=== PATIENT | female | born 1955 | race African-American/Black ===

== ENCOUNTER 2020-11-23 22:29 | IRF | payer OTHER, SELFPAY ==
--- NOTE | 2020-11-23 22:26 | ADMGEN ---
This patient, Leonor Knight, was admitted to [facility] Room 220-02. Patient/family oriented to hospital policies and general routines including ID bracelet, bed and alarms, visiting hours, pain management, procedures, bathroom and other care routines, personal items, smoking policy, room service/diet, and visiting hours. Information on how to activate the Rapid Response Team has been discussed. Patient/Family are encouraged to report perceived risks to care and to ask questions if they do not understand what they are told or what they should do.
--- NOTE | 2020-11-23 22:35 | ADMGEN ---
This patient, Leonor Knight, [facility] at 22:20 . Patient/family oriented to hospital policies and general routines including ID bracelet, bed and alarms, visiting hours, pain management, procedures, bathroom and other care routines, personal items, smoking policy, room service/diet, and visiting hours. Information on how to activate the Rapid Response Team has been discussed. Patient/Family are encouraged to report perceived risks to care and to ask questions if they do not understand what they are told or what they should do.
[2020-11-23 22:46] VITALS: BMI 24.1
[2020-11-23 23:03] VITALS: BP 120/74; PULSE 72; RESP 16; TEMP 35.9; O2SAT 99
[2020-11-24] MEDS: oxyCODONE/ACETAMINOPHEN (*CRX) 5-325 MG TABLET 1 TABLET PO ×2 (01:25→09:16)
[2020-11-24] MEDS: CYCLOBENZAPRINE HCL 10 MG TABLET PO ×2 (01:27→05:48)
[2020-11-24] MEDS: ACETAMINOPHEN 325 MG TABLET PO (03:26)
[2020-11-24 05:10] VITALS: BP 147/78; PULSE 71; RESP 16; TEMP 36.1; O2SAT 100
[2020-11-24 05:14] LABS: Basophils Percent Auto 0.4 % (0.2-1.2); Eosinophils Absolute Auto 0.2 K/mm3 (0-0.3); Eosinophils Percent Auto 3.4 % (0-4.4); Hematocrit 44.1 % (37.0-47.0); Hemoglobin 14.8 g/dL (12.0-15.0); Immature Granulocyte Absolute 0.01 K/mm3 (0.00-0.031); Immature Granulocyte Percent A 0.2 % (0-0.5); Immature Platelet Fraction Pct 3.9 % (0.9-11.2); Lymphocytes Absolute Auto 1.47 K/mm3 (0.9-3.2); Lymphocytes Percent Auto 31.1 % (18.3-44.2); Mean Corpuscular HGB Conc 33.6 g/dl (32-36); Mean Corpuscular Hemoglobin 31.8 pg (26-34); Mean Corpuscular Volume 94.8 fl (80-100); Mean Platelet Volume 9.6 fl (7.4-10.4); Monocytes Absolute Auto 0.6 K/mm3 (0.1-0.6); Monocytes Percent Auto 11.6 % (2.6-8.5); Neutrophils Absolute Auto 2.5 K/mm3 (1.3-6.7); Neutrophils Percent Auto 53.3 % (45.5-73.1); Platelet Count Result 141 k/mm3 (150-375); Red Blood Count 4.65 M/mm3 (4.2-5.4); Red Cell Distribution Width 12.3 % (11.5-14.5); White Blood Count 4.7 K/mm3 (4.5-10.0)
[2020-11-24 05:33] LABS: Anion Gap 2 mmol/L (8-16); Blood Urea Nitrogen 21 mg/dL (7-17); Calcium 9.2 mg/dL (8.4-10.2); Carbon Dioxide 32 mmol/L (22-30); Chloride 104 mmol/L (98-107); Cholesterol 134 mg/dL (0-200); Estimated CRCL calculation 41 ml/min; Estimated Glomerular Filt Rate > 60; Glucose 87 mg/dL (65-105); HDL Direct 60 mg/dL; Potassium 4.1 mmol/L (3.4-5.0); Sodium 138 mmol/L (137-145); Triglycerides 62 mg/dL (<150)
[2020-11-24 05:43] LABS: LDL Cholesterol Direct 55 mg/dL
[2020-11-24] MEDS: POTASSIUM CHLORIDE 10 MEQ TABLET.ER PO (09:15)
[2020-11-24] MEDS: CLOPIDOGREL BISULFATE 75 MG TABLET PO (09:15)
[2020-11-24] MEDS: LOSARTAN POTASSIUM 25 MG TABLET PO (09:15)
[2020-11-24] MEDS: hydroCHLOROthiazide 25 MG TABLET PO (09:15)
[2020-11-24] MEDS: HEPARIN SODIUM 5,000 UNITS/ML VIAL 5000 UNITS SUB-Q ×2 (09:15→20:17)
[2020-11-24] MEDS: MULTIVITAMINS THERAPEUTIC TAB (*BKC) 1 TABLET PO (09:15)
[2020-11-24] MEDS: NIFEdipine 30 MG TAB.ER.24 90 MG PO (09:16)
--- NOTE | 2020-11-24 09:32 | WPDREHABHP ---
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 She presented to [facility] on 11/15/2020 with sudden onset of right-sided weakness. Head CT showed no acute process with chronic small vessel changes. Chest x-ray showed no acute process. The patient was found to have hypertensive urgency with systolics into the 230s that was treated with IV hydralazine, hydrochlorothiazide, and nifedipine. The patient reports that she had not been taking her blood pressure medicine. Neurology was consulted, Dr. Lionel Pacheco, who discovered small areas of infarct in the left thalamus and left caudate head of undetermined age. During the neurologist exam it is suspected that the thalamic lacunar infarct was acute due to microvascular etiology due to hypertension and smoking. 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 Weakness of knee flexion and ankle dorsiflexion , as well as a mute Babinski. An IHSS was 1 for right lower leg drift. The patient did not receive tPA due to being outside the window. On 11/16/2020 MRI confirmed a small left thalamic capsular stroke. Carotid Doppler showed no significant stenosis. Cardiac echo showed no stent, ejection fraction of 60% and grade 1 diastolic dysfunction. MRA showed no acute findings. The patient passed a bedside swallow evaluation and is on regular consistency diet with thin liquids. On 11/19/2020 the patient reported that she attempted to go to the bathroom on her own she did not use her call light for assistance. She had a traumatic fall and complained of right foot pain. X-ray showed a displaced oblique fracture of the right 5th metatarsal shaft. Orthopedics was consulted, Dr. Isabella Yoo, who treated it conservatively with compression dressing, ice, and elevation. Patient is weight-bearing as tolerated with a walking boot. Boot is to be worn when up and she may remove when sleeping. Dr. Isabella Yoo will require follow-up in her office after patient is discharged. DVT prophylaxis was rated as low until a right foot fracture, the patient was then started on subcu heparin. Blood pressure management is utilizing her home dose of hydrochlorothiazide and nifedipine. Lorsartan is a new medication. Patient will be discharged from acute hospital to [facility] on subcu heparin for DVT prophylaxis. Plavix and statin for treatment of CVA. Patient has an unknown aspirin allergy from her childhood. COVID: The patient has not traveled outside the [place] or had contact with someone who is ill that has traveled outside the [place] in the past 21 days. The patient is not travel to an area of the [place] that is experiencing no transmission of the Coronavirus and has not had close personal contact with anyone that has. Patient does not have a fever. The patient is not experiencing lower respiratory illness symptoms. The patient tested negative for COVID on 11/23/2020 HISTORY OF PRESENT ILLNESS: The patient's primary rehab impairment category is 01 stroke The etiologic diagnosis is posterior limb left internal capsule ischemic stroke I saw this patient [id number] on 11/24/2020 Therapy was initiated at the acute care facility and the patient transferred to us from [facility] on 11/23/2020 FALLS OR SURGERIES: The patient has had no major surgeries in the 100 days prior to admission. They had 1 fall in the past year. They had a falls with right 5th metatarsal injury in the past year. PAST MEDICAL HISTORY: hypertension, Raynaud's phenomenon PAST SURGICAL HISTORY: n/a SOCIAL HISTORY: the patient lives with her in
[2020-11-24 12:43] VITALS: BMI 24.1
--- NOTE | 2020-11-24 13:22 | PCNSR ---
On 11/24/20, the student, Jenny Herrera, provided care and completed [facility] documentation on this patient. I have reviewed the student's documentation and agree with the findings.
[2020-11-24 14:00] VITALS: BP 128/75; PULSE 82; RESP 14; TEMP 36.1; O2SAT 99
[2020-11-24] MEDS: ATORVASTATIN 40 MG TABLET PO (20:17)
[2020-11-24 22:00] VITALS: BP 140/88; PULSE 86; RESP 16; TEMP 36.4; O2SAT 99
[2020-11-25 05:15] VITALS: BP 149/95; PULSE 82; RESP 16; TEMP 36; O2SAT 100
[2020-11-25 06:44] VITALS: BP 129/83
[2020-11-25] MEDS: ACETAMINOPHEN 325 MG TABLET PO (08:53)
[2020-11-25] MEDS: CYCLOBENZAPRINE HCL 10 MG TABLET PO ×2 (08:53→18:41)
[2020-11-25] MEDS: CLOPIDOGREL BISULFATE 75 MG TABLET PO (08:55)
[2020-11-25] MEDS: LOSARTAN POTASSIUM 25 MG TABLET PO (08:55)
[2020-11-25] MEDS: hydroCHLOROthiazide 25 MG TABLET PO (08:55)
[2020-11-25] MEDS: POTASSIUM CHLORIDE 10 MEQ TABLET.ER PO (08:56)
[2020-11-25] MEDS: NIFEdipine 30 MG TAB.ER.24 90 MG PO (08:56)
[2020-11-25] MEDS: MULTIVITAMINS THERAPEUTIC TAB (*BKC) 1 TABLET PO (08:56)
[2020-11-25] MEDS: HEPARIN SODIUM 5,000 UNITS/ML VIAL 5000 UNITS SUB-Q ×2 (09:00→20:40)
--- NOTE | 2020-11-25 09:40 | WPDNEURORHBP ---
Subjective Date/time seen: 11/25/20 09:40 Interval history: 65-year-old female past medical history of hypertension and Raynaud's. Who presented to [facility] on 11/15/2020. Patient was found to have a left thalamus infarct on MRI. Patient did not receive tPA due to being outside the window. Patient was found to have no swallowing issues and was placed on a regular diet. On 11/20 patient attempted to go to the bathroom by herself resulting in a fall. Patient was found to have a fracture of the right 5th metatarsal shaft. Orthopedics was consulted and patient was placed in a walking boot with weight-bearing as tolerated. Review of Systems Review of Systems: All systems reviewed & are unremarkable except as noted in HPI and below Functional Status Ambulation Ability Ambulation Assistive Devices: Cane, Sai and Walker, Wheeled Exam Narrative: Exam Narrative: Right facial droop is noted. External ocular muscles are intact. Visual webber are full. Speech reveals a soft voice. Tongue is midline. Heart rate and rhythm is regular. Lungs are clear to auscultation. Abdomen is soft nontender. Left upper and left lower extremity strength are 4/5 right upper extremity strength at the shoulder is roughly 2 and distally 2+ right lower extremity strength is 3/5 right foot is in a soft splint. Patient demonstrates right hemiparesis. Cognition patient is alert and oriented. Memory and sequencing issues are moderately impaired. Patient was unable to perform numbers forwards and backwards. Mood is stable. Objective Data Vital Signs Vital Signs: Vital Signs - 24 hr 11/24/20 14:00 11/24/20 22:00 11/25/20 05:15 Temperature 36.1 C L 36.4 C 36.0 C L Pulse Rate 82 86 82 Respiratory Rate 14 16 16 Blood Pressure 128/75 140/88 149/95 H Pulse Oximetry 99 99 100 11/25/20 06:44 Temperature Pulse Rate Respiratory Rate Blood Pressure 129/83 Pulse Oximetry Intake/Output Intake/Output: Intake & Output 11/22/20 11/23/20 11/24/20 11/25/20 23:59 23:59 23:59 23:59 Intake Total 670 240 Balance 670 240 Meds/Results Medications: Active Medications Generic Name Dose Route Start Last Admin Trade Name Freq PRN Reason Stop Dose Admin Acetaminophen 325 mg 11/24/20 00:35 11/25/20 08:53 Acetaminophen 325 Mg Tablet PO 325 mg Q6-8H PRN Administration Mild Pain (Scale Score 1-4) Atorvastatin Calcium 40 mg 11/24/20 21:00 11/24/20 20:17 Atorvastatin 40 Mg Tablet PO 40 mg HS CHONG Administration Clopidogrel Bisulfate 75 mg 11/24/20 09:00 11/25/20 08:55 Clopidogrel Bisulfate 75 Mg Tablet PO 75 mg DAILY CHONG Administration Cyclobenzaprine HCl 10 mg 11/24/20 00:35 11/25/20 08:53 Cyclobenzaprine Hcl 10 Mg Tablet PO 10 mg Q4-6H PRN Administration Muscle Spasm Cyclobenzaprine HCl 5 mg 11/25/20 09:37 Cyclobenzaprine Hcl 5 Mg Tablet PO Q8H PRN Muscle Spasm Heparin Sodium (Porcine) 5,000 units 11/24/20 09:00 11/25/20 09:00 Heparin Sodium 5,000 Units/Ml Vial SUB-Q 5,000 units Q12HR CHONG Administration Hydralazine HCl 25 mg 11/24/20 00:35 Hydralazine Hcl 25 Mg Tablet PO Q6-8H PRN Hypertension Hydrochlorothiazide 25 mg 11/24/20 09:00 11/25/20 08:55 Hydrochlorothiazide 25 Mg Tablet PO 25 mg DAILY CHONG Administration Losartan Potassium 25 mg 11/24/20 09:00 11/25/20 08:55 Losartan Potassium 25 Mg Tablet PO 25 mg DAILY CHONG Administration Multivitamins Therapeutic 1 tablet 11/24/20 09:00 11/25/20 08:56 Multivitamins Therapeutic Tab (*Bkc) PO 1 tablet DAILY CHONG Administration Nicotine Polacrilex 2 mg 11/24/20 00:35 Nicotine (*Pbkc) 2 Mg Gum BUCCAL Q1H PRN Smoking Cessation Nifedipine 90 mg 11/24/20 09:00 11/25/20 08:56 Nifedipine 30 Mg Tab.Er.24 PO 12/24/20 09:01 90 mg DAILY CHONG Administration Oxycodone/Acetaminophen 1 tablet 11/24/20 00:35 11/24/20 09:16 O
[2020-11-25] MEDS: oxyCODONE/ACETAMINOPHEN (*CRX) 5-325 MG TABLET 1 TABLET PO ×2 (11:34→16:43)
[2020-11-25 14:00] VITALS: BP 134/78; PULSE 80; RESP 18; TEMP 36.5; O2SAT 99
[2020-11-25 20:00] VITALS: PULSE 73; RESP 18; O2SAT 100
[2020-11-25] MEDS: ATORVASTATIN 40 MG TABLET PO (20:40)
[2020-11-25 20:49] VITALS: BP 123/63; PULSE 73; RESP 18; TEMP 35.9; O2SAT 100
[2020-11-26 05:35] VITALS: BP 118/66; PULSE 76; RESP 20; TEMP 36.1; O2SAT 100
[2020-11-26 08:00] VITALS: PULSE 76; RESP 20; O2SAT 100
[2020-11-26] MEDS: NIFEdipine 30 MG TAB.ER.24 90 MG PO (08:49)
[2020-11-26] MEDS: MULTIVITAMINS THERAPEUTIC TAB (*BKC) 1 TABLET PO (08:49)
[2020-11-26] MEDS: oxyCODONE/ACETAMINOPHEN (*CRX) 5-325 MG TABLET 1 TABLET PO ×2 (08:50→15:08)
[2020-11-26] MEDS: CLOPIDOGREL BISULFATE 75 MG TABLET PO (08:50)
[2020-11-26] MEDS: hydroCHLOROthiazide 25 MG TABLET PO (08:50)
[2020-11-26] MEDS: HEPARIN SODIUM 5,000 UNITS/ML VIAL 5000 UNITS SUB-Q ×2 (08:50→20:48)
[2020-11-26] MEDS: POTASSIUM CHLORIDE 10 MEQ TABLET.ER PO (08:50)
[2020-11-26] MEDS: LOSARTAN POTASSIUM 25 MG TABLET PO (08:50)
--- NOTE | 2020-11-26 09:01 | WPDNEURORHBP ---
Subjective Date/time seen: 11/26/20 09:01 Interval history: 65-year-old female past medical history of hypertension and Raynaud's. Who presented to [facility] on 11/15/2020. Patient was found to have a left thalamus infarct on MRI. Patient did not receive tPA due to being outside the window. Patient was found to have no swallowing issues and was placed on a regular diet. On 11/20 patient attempted to go to the bathroom by herself resulting in a fall. Patient was found to have a fracture of the right 5th metatarsal shaft. Orthopedics was consulted and patient was placed in a walking boot with weight-bearing as tolerated. Patient appears brighter. Patient complains of Raynaud's. Patient states that her room is too cold. Patient states that she will heat the room up at night. Review of Systems Review of Systems: All systems reviewed & are unremarkable except as noted in HPI and below Functional Status Ambulation Ability Ability to Ambulate 10 Feet: Minimum Assistance X 1 Ambulation Assistive Devices: Cane, Sai Exam Narrative: Exam Narrative: Right facial droop is noted. External ocular muscles are intact. Visual webber are full. Speech reveals a soft voice. Tongue is midline. Heart rate and rhythm is regular. Lungs are clear to auscultation. Abdomen is soft nontender. Left upper and left lower extremity strength are 4/5 right upper extremity strength at the shoulder is roughly 2 and distally 2+ right lower extremity strength is 3/5 right foot is in a soft splint. Patient demonstrates right hemiparesis. Cognition patient is alert and oriented. Patient improved with overall cognition. Mood is stable Transfers are min assist with hemiwalker Objective Data Vital Signs Vital Signs: Vital Signs - 24 hr 11/25/20 14:00 11/25/20 20:00 11/25/20 20:49 Temperature 36.5 C 35.9 C L Pulse Rate 80 73 73 Respiratory Rate 18 18 18 Blood Pressure 134/78 123/63 Pulse Oximetry 99 100 100 11/26/20 05:35 Temperature 36.1 C L Pulse Rate 76 Respiratory Rate 20 Blood Pressure 118/66 Pulse Oximetry 100 Intake/Output Intake/Output: Intake & Output 11/23/20 11/24/20 11/25/20 11/26/20 23:59 23:59 23:59 23:59 Intake Total 670 720 Balance 670 720 Meds/Results Medications: Active Medications Generic Name Dose Route Start Last Admin Trade Name Freq PRN Reason Stop Dose Admin Acetaminophen 325 mg 11/24/20 00:35 11/25/20 08:53 Acetaminophen 325 Mg Tablet PO 325 mg Q6-8H PRN Administration Mild Pain (Scale Score 1-4) Atorvastatin Calcium 40 mg 11/24/20 21:00 11/25/20 20:40 Atorvastatin 40 Mg Tablet PO 40 mg HS CHONG Administration Clopidogrel Bisulfate 75 mg 11/24/20 09:00 11/26/20 08:50 Clopidogrel Bisulfate 75 Mg Tablet PO 75 mg DAILY CHONG Administration Cyclobenzaprine HCl 10 mg 11/24/20 00:35 11/25/20 18:41 Cyclobenzaprine Hcl 10 Mg Tablet PO 10 mg Q4-6H PRN Administration Muscle Spasm Cyclobenzaprine HCl 5 mg 11/25/20 09:37 Cyclobenzaprine Hcl 5 Mg Tablet PO Q8H PRN Muscle Spasm Heparin Sodium (Porcine) 5,000 units 11/24/20 09:00 11/26/20 08:50 Heparin Sodium 5,000 Units/Ml Vial SUB-Q 5,000 units Q12HR CHONG Administration Hydralazine HCl 25 mg 11/24/20 00:35 Hydralazine Hcl 25 Mg Tablet PO Q6-8H PRN Hypertension Hydrochlorothiazide 25 mg 11/24/20 09:00 11/26/20 08:50 Hydrochlorothiazide 25 Mg Tablet PO 25 mg DAILY CHONG Administration Losartan Potassium 25 mg 11/24/20 09:00 11/26/20 08:50 Losartan Potassium 25 Mg Tablet PO 25 mg DAILY CHONG Administration Multivitamins Therapeutic 1 tablet 11/24/20 09:00 11/26/20 08:49 Multivitamins Therapeutic Tab (*Bkc) PO 1 tablet DAILY CHONG Administration Nicotine Polacrilex 2 mg 11/24/20 00:35 Nicotine (*Pbkc) 2 Mg Gum BUCCAL Q1H PRN Smoking Cessation Nifedipine 90 mg 11/24/20 09:00 11/26/20 08:49
[2020-11-26 14:00] VITALS: BP 139/75; PULSE 81; RESP 18; TEMP 36.2; O2SAT 98
--- NOTE | 2020-11-26 18:29 | PC.NURSE ---
had percocet at 1508 so 1700 percocet was held.
[2020-11-26 19:55] VITALS: BP 126/82; PULSE 67; RESP 18; TEMP 36.2; O2SAT 100
[2020-11-26 20:00] VITALS: PULSE 67; RESP 18; O2SAT 100
[2020-11-26] MEDS: CYCLOBENZAPRINE HCL 10 MG TABLET PO (20:48)
[2020-11-26] MEDS: ATORVASTATIN 40 MG TABLET PO (20:48)
[2020-11-27 05:08] VITALS: BP 122/70; PULSE 69; RESP 18; TEMP 36.2; O2SAT 100
--- NOTE | 2020-11-27 08:38 | RPD ---
INDIVIDUALIZED PLAN OF CARE FOR Leonor Knight Brief Synthesis of Pre-Admission Screen, Post-Admission Evaluation and Therapy Evaluations: The patient presents to rehab with posterior limb left internal capsule ischemic stroke. Comorbidities include CVA, right-side weakness, right facial droop, hypertension, Raynaud's phenomena, tobacco abuse, displaced oblique fracture of the right fifth metatarsal shaft, and hypokalemia. The patient?s needs will be best met in an intensive program vs. at a lower level of care. The patient requires physician services for medical oversight, and coordination of care. Emotional needs will be monitored as depression is a common sequelae of stroke. The patient needs physician monitoring and treatment of hypertension, hypokalemia, new right foot fracture from recent fall during acute admission, monitoring for adverse reactions to new medications, monitoring of infection, and pain control. The patient requires nursing services for frequent neuro checks, anticoagulation therapy, medication management and education, pressure relief and skin care management, monitoring of labs, bowel and bladder training, possible IV administration, and fall/safety precautions. The patient will participate in stroke-specific education regarding risk modification to decrease the risk of further stroke. Deficits include:ADLs, Balance, Endurance, Family Training/Education, Mobility, Pain Management, ROM, Safety, Strength, and Transfers. Mat Man/Case Management for: Discharge Planning and Patient/Family Counseling Physical Therapy: 5 days per week for 75 minutes. Treatments may include: Therapeutic Exercise, Gait Training, Neuromuscular Re-education, Transfer Training, Community Reintegration, Bed Mobility, Patient/Family Education, Wheelchair Mobility Group Therapy/Concurrent Therapy Rationales: -Improve attention span during functional activities in a distracted environment. -Enhance problem solving and/or adequate judgment skills during functional activities in a distracted environment. -Promote increased safety awareness in a distracted environment to reduce fall risk with functional tasks, transfers, and ambulation to allow a more safe, self-sufficient return to the home environment. -Improve dynamic balance skills to promote safety and independence with functional activities in a distracted environment for maximum gain. Occupational Therapy: 5 days per week for 75 minutes. Treatments may include: Therapeutic Exercise, Therapeutic Activity, Cognitive Training, Self-Care Transfer Training, Community Reintegration, Home Management, Patient/Family Education, Wheelchair Mobility Training, Energy Conservation Training Group Therapy/Concurrent Therapy Rationales: -Allow therapist to observe and teach generalization and carry-over of skills learned in individual therapy. -Enhance problem solving and sequencing skills during therapeutic activities in a distracted environment. -Promote increased safety awareness in a realistic setting to reduce fall risk with functional tasks due to visual and verbal distractions. -Increase functional level with ADLs, ADL transfers and use of adaptive equipment through therapeutic activities with others while promoting safety to allow a more safe, self-sufficient return home. Speech Therapy: 5 days per week for 30 minutes. Treatments may include: Dysphasia Therapy, Speech/Language/Communication Therapy, Cognitive Training, Patient/Family Education Group Therapy/Concurrent Therapy - Rationale: -Allow therapist to observe and teach generalization and carry-over of skills learned in individual therapy. -Improve comprehension skills with complex or abstract ideas through discussion in a realistic setting. -Enhance problem solving skills with complex issues during activities in a distracted environment. -Promote increased memory skills and concentration in a distracted environment for a safe transition home. -Improve attention a
[2020-11-27] MEDS: CLOPIDOGREL BISULFATE 75 MG TABLET PO (09:44)
[2020-11-27] MEDS: LOSARTAN POTASSIUM 25 MG TABLET PO (09:44)
[2020-11-27] MEDS: HEPARIN SODIUM 5,000 UNITS/ML VIAL 5000 UNITS SUB-Q ×2 (09:44→20:28)
[2020-11-27] MEDS: POTASSIUM CHLORIDE 10 MEQ TABLET.ER PO (09:45)
[2020-11-27] MEDS: hydroCHLOROthiazide 25 MG TABLET PO (09:45)
[2020-11-27] MEDS: MULTIVITAMINS THERAPEUTIC TAB (*BKC) 1 TABLET PO (09:45)
[2020-11-27] MEDS: NIFEdipine 30 MG TAB.ER.24 90 MG PO (09:46)
[2020-11-27] MEDS: oxyCODONE/ACETAMINOPHEN (*CRX) 5-325 MG TABLET 1 TABLET PO ×2 (09:48→17:54)
--- NOTE | 2020-11-27 10:41 | WPDNEURORHBP ---
Subjective Date/time seen: 11/27/20 10:41 Interval history: 65-year-old female past medical history of hypertension and Raynaud's who presented to [facility] on 11/15/2020. Patient was found to have a left thalamus infarct on MRI. Patient did not receive tPA due to being outside the window. Patient was found to have no swallowing issues and was placed on a regular diet. On 11/20 patient attempted to go to the bathroom by herself resulting in a fall. Patient was found to have a fracture of the right 5th metatarsal shaft. Orthopedics was consulted and patient was placed in a walking boot with weight-bearing as tolerated. Patient is mildly upset with herself regarding her fall. Patient states that the foot fracture is limiting her overall stroke rehabilitation. Patient is receptive to having Flexeril scheduled at night due to ongoing nightly muscle spasms Review of Systems Review of Systems: All systems reviewed & are unremarkable except as noted in HPI and below Functional Status Ambulation Ability Ability to Ambulate 10 Feet: Minimum Assistance X 1 Ambulation Assistive Devices: Cane, Sai Exam Narrative: Exam Narrative: Right facial droop is noted. External ocular muscles are intact. Visual webber are full. Speech reveals a soft voice. Tongue is midline. Heart rate and rhythm is regular. Lungs are clear to auscultation. Abdomen is soft nontender. Left upper and left lower extremity strength are 4/5 right upper extremity strength at the shoulder is roughly 2 and distally 2+ right lower extremity strength is 3/5 right foot is in a soft splint. and CAM boot. Bruising is noted to the lateral aspect of the foot. Pain is noted on weightbearing. Patient demonstrates right hemiparesis. Cognition patient is alert times 4. . Transfers are min assist with hemiwalker. Bed mobility min assist. Objective Data Vital Signs Vital Signs: Vital Signs - 24 hr 11/26/20 14:00 11/26/20 19:55 11/26/20 20:00 Temperature 36.2 C L 36.2 C L Pulse Rate 81 67 67 Respiratory Rate 18 18 18 Blood Pressure 139/75 126/82 Pulse Oximetry 98 100 100 11/27/20 05:08 Temperature 36.2 C L Pulse Rate 69 Respiratory Rate 18 Blood Pressure 122/70 Pulse Oximetry 100 Intake/Output Intake/Output: Intake & Output 03/26/21 11/25/20 11/26/20 11/27/20 23:59 23:59 23:59 23:59 Intake Total 670 720 720 240 Balance 670 720 720 240 Meds/Results Medications: Active Medications Generic Name Dose Route Start Last Admin Trade Name Freq PRN Reason Stop Dose Admin Acetaminophen 325 mg 11/24/20 00:35 11/25/20 08:53 Acetaminophen 325 Mg Tablet PO 325 mg Q6-8H PRN Administration Mild Pain (Scale Score 1-4) Atorvastatin Calcium 40 mg 11/24/20 21:00 11/26/20 20:48 Atorvastatin 40 Mg Tablet PO 40 mg HS CHONG Administration Clopidogrel Bisulfate 75 mg 11/24/20 09:00 11/27/20 09:44 Clopidogrel Bisulfate 75 Mg Tablet PO 75 mg DAILY CHONG Administration Cyclobenzaprine HCl 10 mg 11/24/20 00:35 11/26/20 20:48 Cyclobenzaprine Hcl 10 Mg Tablet PO 10 mg Q4-6H PRN Administration Muscle Spasm Cyclobenzaprine HCl 5 mg 11/25/20 09:37 Cyclobenzaprine Hcl 5 Mg Tablet PO Q8H PRN Muscle Spasm Heparin Sodium (Porcine) 5,000 units 11/24/20 09:00 11/27/20 09:44 Heparin Sodium 5,000 Units/Ml Vial SUB-Q 5,000 units Q12HR CHONG Administration Hydralazine HCl 25 mg 11/24/20 00:35 Hydralazine Hcl 25 Mg Tablet PO Q6-8H PRN Hypertension Hydrochlorothiazide 25 mg 11/24/20 09:00 11/27/20 09:45 Hydrochlorothiazide 25 Mg Tablet PO 25 mg DAILY CHONG Administration Losartan Potassium 25 mg 11/24/20 09:00 11/27/20 09:44 Losartan Potassium 25 Mg Tablet PO 25 mg DAILY CHONG Administration Multivitamins Therapeutic 1 tablet 11/24/20 09:00 11/27/20 09:45 Multivitamins Therapeutic Tab (*Bkc) PO 1 tablet DAILY CHONG Administration Nicoti
[2020-11-27 14:00] VITALS: BP 135/95; PULSE 70; RESP 18; TEMP 36.8; O2SAT 100
[2020-11-27] MEDS: CYCLOBENZAPRINE HCL 10 MG TABLET PO ×2 (14:41→20:28)
[2020-11-27] MEDS: ACETAMINOPHEN 325 MG TABLET PO (14:41)
--- NOTE | 2020-11-27 16:07 | PCPTNOTE ---
Leonor Knight was evaluated for a monica cane on 11/27/2020 by this physical therapist. The monica cane will resolve patient's mobility limitations and will be used for ADL's within the home. The patient can safely use the monica cane. ?The monica cane will resolve the patient?s mobility deficits, including R hemiplegia, decreased balance and endurance.
[2020-11-27] MEDS: ATORVASTATIN 40 MG TABLET PO (20:28)
[2020-11-27 21:53] VITALS: BP 131/88; PULSE 77; RESP 16; TEMP 36.3; O2SAT 98
[2020-11-28 06:00] VITALS: BP 141/79; PULSE 77; RESP 16; TEMP 36.2; O2SAT 100
[2020-11-28] MEDS: NIFEdipine 30 MG TAB.ER.24 90 MG PO (08:14)
[2020-11-28] MEDS: LOSARTAN POTASSIUM 25 MG TABLET PO (08:14)
[2020-11-28] MEDS: POTASSIUM CHLORIDE 10 MEQ TABLET.ER PO (08:14)
[2020-11-28] MEDS: hydroCHLOROthiazide 25 MG TABLET PO (08:14)
[2020-11-28] MEDS: MULTIVITAMINS THERAPEUTIC TAB (*BKC) 1 TABLET PO (08:14)
[2020-11-28] MEDS: CLOPIDOGREL BISULFATE 75 MG TABLET PO (08:14)
[2020-11-28] MEDS: HEPARIN SODIUM 5,000 UNITS/ML VIAL 5000 UNITS SUB-Q ×2 (08:15→20:33)
[2020-11-28] MEDS: oxyCODONE/ACETAMINOPHEN (*CRX) 5-325 MG TABLET 1 TABLET PO ×2 (08:16→12:08)
--- NOTE | 2020-11-28 13:48 | PCPTNOTE ---
Jane A. Mariana, RANJIT completed an inpatient rehab wheelchair evaluation on Leonor Knight on 11/28/2020. The patient is unable to safely and independently ambulate household distances due to their current impairments. Their diagnosis is CVA and their impairments include decreased strength, decreased endurance, decreased range of motion, decreased balance and lower extremity weakness. Leonor's weight bearing status is weight-bearing as tolerated on the bilateral lower legs. The patient demonstrates significant functional mobility limitations that impair their ability to participate in mobility-related activities of daily living (MRADLs), including toileting, feeding, dressing, grooming, and bathing in the customary locations in the home. These limitations cannot be sufficiently resolved by the use of an appropriately fitted cane or walker. It is recommended that the patient utilize a wheelchair for functional mobility within the home in order to facilitate optimal safety, independence and participation in all MRADL's and adequately access their home environment on a regular basis. The patient's home provides adequate access between rooms, maneuvering space, and surfaces to accommodate the recommended wheelchair. The use of a wheelchair for functional mobility is strongly recommended and the patient is receptive to using the wheelchair. The use of this wheelchair will significantly improve the patient's ability to participate in MRADLS and the patient will use it on a regular basis in the home. This will facilitate optimal safety, independence, and participation. The patient has demonstrated sufficient physical and mental capabilities needed to safely propel a manual wheelchair that is provided in the home during a typical day. Recommended Wheelchair Frame: 16x18 Recommended Wheelchair Size: standard Recommended Wheelchair Cushion:standard Wheelchair Leg Recommendations: bilateral elevating leg rests - Elevating legrests are recommended because the patient has significant edema of the lower extremities that requires an elevating legrest. - Anti-tippers are recommended due to patient demonstrating increased risk for falls. They would benefit from anti-tippers with added safety and stabilization. Jane Peña IT PROFESSIONAL 11-28-2020 Evaluating Therapist Date I agree with and certify that the above recommendation is medically necessary. Referring Physician Date I agree with and certify that the above recommendation is medically necessary. Referring Physician Date
[2020-11-28 14:00] VITALS: BP 139/74; PULSE 86; RESP 18; TEMP 36.6; O2SAT 97
--- NOTE | 2020-11-28 14:30 | WPDNEURORHBP ---
Subjective Date/time seen: 11/28/20 14:30 Interval history: 65-year-old female past medical history of hypertension and Raynaud's who presented to [facility] on 11/15/2020. Patient was found to have a left thalamus infarct on MRI. Patient did not receive tPA due to being outside the window. Patient was found to have no swallowing issues and was placed on a regular diet. On 11/20 patient attempted to go to the bathroom by herself resulting in a fall. Patient was found to have a fracture of the right 5th metatarsal shaft. Orthopedics was consulted and patient was placed in a walking boot with weight-bearing as tolerated. Patient is seen during therapy. Patient is ambulating with CAM boot. Review of Systems Review of Systems: All systems reviewed & are unremarkable except as noted in HPI and below Functional Status Ambulation Ability Ability to Ambulate 10 Feet: Contact Guard Ability to Ambulate 50 Feet With 2 Turns: Contact Guard Ambulation Assistive Devices: Cane, Sai Exam Narrative: Exam Narrative: Right facial droop is noted. External ocular muscles are intact. Visual webber are full. Speech reveals a soft voice. Tongue is midline. Heart rate and rhythm is regular. Lungs are clear to auscultation. Abdomen is soft nontender. Left upper and left lower extremity strength are 4/5 right upper extremity strength at the shoulder is roughly 2 and distally 2+ right lower extremity strength is 3/5 right foot is in a soft splint. and CAM boot. Bruising is noted to the lateral aspect of the foot. Pain is noted on weightbearing. Patient demonstrates right hemiparesis. Cognition patient is alert times 4. . Patient requires minimal assistance with bed mobility transfers are moderate assistance. Patient is ambulating 42 ft with a sai cane with minimal assistance patient is at mod assistance to max assistance with toileting dressing bathing. Patient is anticoagulated on heparin Overall loud this is improving patient demonstrates reduced immediate memory and complex information deficits. Objective Data Vital Signs Vital Signs: Vital Signs - 24 hr 11/27/20 21:53 11/28/20 06:00 Temperature 36.3 C L 36.2 C L Pulse Rate 77 77 Respiratory Rate 16 16 Blood Pressure 131/88 141/79 H Pulse Oximetry 98 100 Intake/Output Intake/Output: Intake & Output 11/25/20 11/26/20 11/27/20 11/28/20 23:59 23:59 23:59 23:59 Intake Total 720 720 480 480 Balance 720 720 480 480 Meds/Results Medications: Active Medications Generic Name Dose Route Start Last Admin Trade Name Freq PRN Reason Stop Dose Admin Acetaminophen 325 mg 11/24/20 00:35 11/27/20 14:41 Acetaminophen 325 Mg Tablet PO 325 mg Q6-8H PRN Administration Mild Pain (Scale Score 1-4) Atorvastatin Calcium 40 mg 11/24/20 21:00 11/27/20 20:28 Atorvastatin 40 Mg Tablet PO 40 mg HS CHONG Administration Clopidogrel Bisulfate 75 mg 11/24/20 09:00 11/28/20 08:14 Clopidogrel Bisulfate 75 Mg Tablet PO 75 mg DAILY CHONG Administration Cyclobenzaprine HCl 10 mg 11/24/20 00:35 11/27/20 14:41 Cyclobenzaprine Hcl 10 Mg Tablet PO 10 mg Q4-6H PRN Administration Muscle Spasm Cyclobenzaprine HCl 10 mg 11/27/20 21:00 11/27/20 20:28 Cyclobenzaprine Hcl 10 Mg Tablet PO 10 mg HS CHONG Administration Cyclobenzaprine HCl 5 mg 11/27/20 10:50 Cyclobenzaprine Hcl 5 Mg Tablet PO Q8H PRN Muscle Spasm Heparin Sodium (Porcine) 5,000 units 11/24/20 09:00 11/28/20 08:15 Heparin Sodium 5,000 Units/Ml Vial SUB-Q 5,000 units Q12HR CHONG Administration Hydralazine HCl 25 mg 11/24/20 00:35 Hydralazine Hcl 25 Mg Tablet PO Q6-8H PRN Hypertension Hydrochlorothiazide 25 mg 11/24/20 09:00 11/28/20 08:14 Hydrochlorothiazide 25 Mg Tablet PO 25 mg DAILY CHONG Administration Losartan Potassium 25 mg 11/24/20 09:00 11/28/20 08:14 Losartan Potassium 25 Mg Tablet PO 25
[2020-11-28] MEDS: CYCLOBENZAPRINE HCL 10 MG TABLET PO (20:33)
[2020-11-28] MEDS: ATORVASTATIN 40 MG TABLET PO (20:33)
[2020-11-28 22:00] VITALS: BP 109/76; PULSE 77; RESP 16; TEMP 36.2; O2SAT 100
[2020-11-29 06:00] VITALS: BP 125/81; PULSE 84; RESP 16; TEMP 36.4; O2SAT 100
[2020-11-29 08:00] VITALS: PULSE 84; RESP 16; O2SAT 100
[2020-11-29] MEDS: CLOPIDOGREL BISULFATE 75 MG TABLET PO (09:52)
[2020-11-29] MEDS: oxyCODONE/ACETAMINOPHEN (*CRX) 5-325 MG TABLET 1 TABLET PO ×3 (09:52→18:44)
[2020-11-29] MEDS: HEPARIN SODIUM 5,000 UNITS/ML VIAL 5000 UNITS SUB-Q ×2 (09:52→21:16)
[2020-11-29] MEDS: NIFEdipine 30 MG TAB.ER.24 90 MG PO (09:53)
[2020-11-29] MEDS: LOSARTAN POTASSIUM 25 MG TABLET PO (09:53)
[2020-11-29] MEDS: MULTIVITAMINS THERAPEUTIC TAB (*BKC) 1 TABLET PO (09:54)
[2020-11-29] MEDS: hydroCHLOROthiazide 25 MG TABLET PO (09:54)
[2020-11-29] MEDS: POTASSIUM CHLORIDE 10 MEQ TABLET.ER PO (09:54)
--- NOTE | 2020-11-29 13:39 | PCNFU ---
Nutrition Follow-Up Complete: Suboptimal oral intake related to timing of meals as evidenced by 25% meal consumption of breakfast and daughter request for ensure BID. Goal: Patient to consume 75% or more of meals on current diet order. Pt current nutrition is heart healthy diet. Last recorded weight is 57 kg. Recommend re-weighing patient prior to discharge. Bowel Motility: + BM 11/25 Labs Reviewed: No new labs. Meds Noted: Lipitor, Miralax, Plavix, Kcl, Flexeril, Heparin Sodium, Cozaar, Hydrochlorothiazide, Hydralazine Hcl Additional Notes: Checked up with patient today. Patient reports doing well and having an increased appetite. Her only complaint is not having enough time to eat because she is a slow eater. She does not get to eat as much as she would like sometimes because she is being rushed to therapy. Also, she would like to be put on a regular diet if possible. This may be acceptable until intakes improve. She had no further nutritional questions and/or concerns. Monitor patients meals, medications, weight, and oral intake every 5 days.
--- NOTE | 2020-11-29 13:47 | WPDNEURORHBP ---
Subjective Date/time seen: 11/29/20 13:47 Interval history: 65-year-old female past medical history of hypertension and Raynaud's who presented to [facility] on 11/15/2020. Patient was found to have a left thalamus infarct on MRI. Patient did not receive tPA due to being outside the window. Patient was found to have no swallowing issues and was placed on a regular diet. On 11/20 patient attempted to go to the bathroom by herself resulting in a fall. Patient was found to have a fracture of the right 5th metatarsal shaft. Orthopedics was consulted and patient was placed in a walking boot with weight-bearing as tolerated. Patient is seen during shower activity. Patient complains of ongoing foot pain and inability to sleep due to pain. I will scheduled 2 tabs at bedtime of Percocet Review of Systems Review of Systems: All systems reviewed & are unremarkable except as noted in HPI and below Functional Status Ambulation Ability Ability to Ambulate 10 Feet: Contact Guard Ability to Ambulate 50 Feet With 2 Turns: Contact Guard Ambulation Assistive Devices: Cane, Sai Exam Narrative: Exam Narrative: Right facial droop is noted. External ocular muscles are intact. Visual webber are full. Speech reveals a soft voice. Tongue is midline. Heart rate and rhythm is regular. Lungs are clear to auscultation. Abdomen is soft nontender. Left upper and left lower extremity strength are 4/5 right upper extremity strength at the shoulder is roughly 2 and distally 2+ right lower extremity strength is 3/5 right foot is in a soft splint. and CAM boot. Bruising is noted to the lateral aspect of the foot. Pain is noted on weightbearing. Patient demonstrates right hemiparesis. Cognition patient is alert times 4. . Patient independent with bed mobility. Bed transfers are contact guard. Patient is anticoagulated on heparin patient demonstrates reduced immediate memory and complex information deficits. Objective Data Vital Signs Vital Signs: Vital Signs - 24 hr 11/28/20 14:00 11/28/20 22:00 11/29/20 06:00 Temperature 36.6 C 36.2 C L 36.4 C L Pulse Rate 86 77 84 Respiratory Rate 18 16 16 Blood Pressure 139/74 109/76 125/81 Pulse Oximetry 97 100 100 11/29/20 08:00 Temperature Pulse Rate 84 Respiratory Rate 16 Blood Pressure Pulse Oximetry 100 Intake/Output Intake/Output: Intake & Output 11/26/20 11/27/20 11/28/20 11/29/20 23:59 23:59 23:59 23:59 Intake Total 720 480 720 480 Balance 720 480 720 480 Meds/Results Medications: Active Medications Generic Name Dose Route Start Last Admin Trade Name Freq PRN Reason Stop Dose Admin Acetaminophen 325 mg 11/24/20 00:35 11/27/20 14:41 Acetaminophen 325 Mg Tablet PO 325 mg Q6-8H PRN Administration Mild Pain (Scale Score 1-4) Atorvastatin Calcium 40 mg 11/24/20 21:00 11/28/20 20:33 Atorvastatin 40 Mg Tablet PO 40 mg HS CHONG Administration Clopidogrel Bisulfate 75 mg 11/24/20 09:00 11/29/20 09:52 Clopidogrel Bisulfate 75 Mg Tablet PO 75 mg DAILY CHONG Administration Cyclobenzaprine HCl 10 mg 11/24/20 00:35 11/27/20 14:41 Cyclobenzaprine Hcl 10 Mg Tablet PO 10 mg Q4-6H PRN Administration Muscle Spasm Cyclobenzaprine HCl 10 mg 11/27/20 21:00 11/28/20 20:33 Cyclobenzaprine Hcl 10 Mg Tablet PO 10 mg HS CHONG Administration Heparin Sodium (Porcine) 5,000 units 11/24/20 09:00 11/29/20 09:52 Heparin Sodium 5,000 Units/Ml Vial SUB-Q 5,000 units Q12HR CHONG Administration Hydralazine HCl 25 mg 11/24/20 00:35 Hydralazine Hcl 25 Mg Tablet PO Q6-8H PRN Hypertension Hydrochlorothiazide 25 mg 11/24/20 09:00 11/29/20 09:54 Hydrochlorothiazide 25 Mg Tablet PO 25 mg DAILY CHONG Administration Losartan Potassium 25 mg 11/24/20 09:00 11/29/20 09:53 Losartan Potassium 25 Mg Tablet PO 25 mg DAILY CHONG Administration Multivitamins Therapeutic 1 tablet 0
[2020-11-29 14:00] VITALS: BP 146/79; PULSE 72; RESP 18; TEMP 36.8; O2SAT 100
--- NOTE | 2020-11-29 14:06 | PCNSR ---
On 11/29/20, the student, Jenny Herrera, provided care and completed [facility] documentation on this patient. I have reviewed the student's documentation and agree with the findings.
[2020-11-29 20:46] VITALS: BP 119/67; PULSE 73; RESP 18; TEMP 36.3; O2SAT 100
[2020-11-29] MEDS: ATORVASTATIN 40 MG TABLET PO (21:16)
[2020-11-29] MEDS: CYCLOBENZAPRINE HCL 10 MG TABLET PO (21:16)
[2020-11-29] MEDS: oxyCODONE/ACETAMINOPHEN (*CRX) 5-325 MG TABLET 2 TABLET PO (22:29)
[2020-11-30 05:32] VITALS: BP 126/76; PULSE 76; RESP 18; TEMP 36.4; O2SAT 100
[2020-11-30] MEDS: CLOPIDOGREL BISULFATE 75 MG TABLET PO (09:12)
[2020-11-30] MEDS: oxyCODONE/ACETAMINOPHEN (*CRX) 5-325 MG TABLET 1 TABLET PO ×2 (09:12→12:09)
[2020-11-30] MEDS: hydroCHLOROthiazide 25 MG TABLET PO (09:13)
[2020-11-30] MEDS: LOSARTAN POTASSIUM 25 MG TABLET PO (09:13)
[2020-11-30] MEDS: HEPARIN SODIUM 5,000 UNITS/ML VIAL 5000 UNITS SUB-Q ×2 (09:13→21:02)
[2020-11-30] MEDS: MULTIVITAMINS THERAPEUTIC TAB (*BKC) 1 TABLET PO (09:13)
[2020-11-30] MEDS: POTASSIUM CHLORIDE 10 MEQ TABLET.ER PO (09:14)
[2020-11-30] MEDS: NIFEdipine 30 MG TAB.ER.24 90 MG PO (09:14)
[2020-11-30 10:35] VITALS: BP 132/81; PULSE 76; O2SAT 100
[2020-11-30] MEDS: polyethylene glycoL 3350 17 GM POWD.PACK PO (13:07)
[2020-11-30 14:00] VITALS: BP 116/75; PULSE 72; RESP 16; TEMP 36.6; O2SAT 100
--- NOTE | 2020-11-30 15:40 | WPDNEURORHBP ---
Subjective Date/time seen: 11/30/20 15:40 Interval history: 65-year-old female past medical history of hypertension and Raynaud's who presented to [facility] on 11/15/2020. Patient was found to have a left thalamus infarct on MRI. Patient did not receive tPA due to being outside the window. Patient was found to have no swallowing issues and was placed on a regular diet. On 11/20 patient attempted to go to the bathroom by herself resulting in a fall. Patient was found to have a fracture of the right 5th metatarsal shaft. Orthopedics was consulted and patient was placed in a walking boot with weight-bearing as tolerated. Patient is seen during shower activity. Patient complains of inability to sleep. I have scheduled 2 tabs at bedtime of Percocet but this did not help with sleep. Review of Systems Review of Systems: All systems reviewed & are unremarkable except as noted in HPI and below Functional Status Ambulation Ability Ability to Ambulate 10 Feet: Standby Assistance Ability to Ambulate 50 Feet With 2 Turns: Standby Assistance Ambulation Assistive Devices: Cane, Sai Exam Narrative: Exam Narrative: Right facial droop is noted. External ocular muscles are intact. Visual webber are full. Speech reveals a soft voice. Tongue is midline. Heart rate and rhythm is regular. Lungs are clear to auscultation. Abdomen is soft nontender. Left upper and left lower extremity strength are 4/5 right upper extremity strength at the shoulder is roughly 2 and distally 2+ right lower extremity strength is 3/5 right foot is in a soft splint. and CAM boot. Bruising is noted to the lateral aspect of the foot. Pain is noted on weightbearing. Patient demonstrates right hemiparesis. Cognition patient is alert times 4. . Patient independent with bed mobility. Bed transfers are contact guard. Patient with better control of RLE. Patient still tends to externally rotate due to muscle weakness Patient is anticoagulated on heparin patient demonstrates reduced immediate memory and complex information deficits. Objective Data Vital Signs Vital Signs: Vital Signs - 24 hr 11/29/20 20:46 11/30/20 05:32 11/30/20 10:35 Temperature 36.3 C L 36.4 C Pulse Rate 73 76 76 Respiratory Rate 18 18 Blood Pressure 119/67 126/76 132/81 Pulse Oximetry 100 100 100 11/30/20 14:00 Temperature 36.6 C Pulse Rate 72 Respiratory Rate 16 Blood Pressure 116/75 Pulse Oximetry 100 Intake/Output Intake/Output: Intake & Output 11/27/20 11/28/20 11/29/20 11/30/20 23:59 23:59 23:59 23:59 Intake Total 480 720 720 240 Balance 480 720 720 240 Meds/Results Medications: Active Medications Generic Name Dose Route Start Last Admin Trade Name Freq PRN Reason Stop Dose Admin Acetaminophen 325 mg 11/24/20 00:35 11/27/20 14:41 Acetaminophen 325 Mg Tablet PO 325 mg Q6-8H PRN Administration Mild Pain (Scale Score 1-4) Atorvastatin Calcium 40 mg 11/24/20 21:00 11/29/20 21:16 Atorvastatin 40 Mg Tablet PO 40 mg HS CHONG Administration Clopidogrel Bisulfate 75 mg 11/24/20 09:00 11/30/20 09:12 Clopidogrel Bisulfate 75 Mg Tablet PO 75 mg DAILY CHONG Administration Cyclobenzaprine HCl 10 mg 11/24/20 00:35 11/27/20 14:41 Cyclobenzaprine Hcl 10 Mg Tablet PO 10 mg Q4-6H PRN Administration Muscle Spasm Cyclobenzaprine HCl 10 mg 11/27/20 21:00 11/29/20 21:16 Cyclobenzaprine Hcl 10 Mg Tablet PO 10 mg HS CHONG Administration Heparin Sodium (Porcine) 5,000 units 11/24/20 09:00 11/30/20 09:13 Heparin Sodium 5,000 Units/Ml Vial SUB-Q 5,000 units Q12HR CHONG Administration Hydralazine HCl 25 mg 11/24/20 00:35 Hydralazine Hcl 25 Mg Tablet PO Q6-8H PRN Hypertension Hydrochlorothiazide 25 mg 11/24/20 09:00 11/30/20 09:13 Hydrochlorothiazide 25 Mg Tablet PO 25 mg DAILY CHONG Administration Losartan Potassium 25 mg 11/24/20 09:00 11/30/20 09:13
[2020-11-30 20:53] VITALS: BP 149/82; PULSE 78; RESP 18; TEMP 36.3; O2SAT 100
[2020-11-30] MEDS: oxyCODONE/ACETAMINOPHEN (*CRX) 5-325 MG TABLET 2 TABLET PO (20:57)
[2020-11-30] MEDS: ATORVASTATIN 40 MG TABLET PO (21:00)
[2020-11-30] MEDS: CYCLOBENZAPRINE HCL 10 MG TABLET PO (21:38)
[2020-11-30] MEDS: MELATONIN 3 MG TABLET PO (22:13)
[2020-12-01 05:10] LABS: Basophils Absolute Auto 0.1 K/mm3 (0.0-0.1); Basophils Percent Auto 1.2 % (0.2-1.2); Eosinophils Absolute Auto 0.2 K/mm3 (0-0.3); Eosinophils Percent Auto 5.9 % (0-4.4); Hematocrit 40.3 % (37.0-47.0); Hemoglobin 13.1 g/dL (12.0-15.0); Immature Granulocyte Absolute 0.01 K/mm3 (0.00-0.031); Immature Granulocyte Percent A 0.2 % (0-0.5); Lymphocytes Absolute Auto 1.94 K/mm3 (0.9-3.2); Lymphocytes Percent Auto 47.5 % (18.3-44.2); Mean Corpuscular HGB Conc 32.5 g/dl (32-36); Mean Corpuscular Volume 92.4 fl (80-100); Mean Platelet Volume 9.8 fl (7.4-10.4); Monocytes Absolute Auto 0.3 K/mm3 (0.1-0.6); Monocytes Percent Auto 7.8 % (2.6-8.5); Neutrophils Absolute Auto 1.5 K/mm3 (1.3-6.7); Neutrophils Percent Auto 37.4 % (45.5-73.1); Platelet Count Result 154 k/mm3 (150-375); Red Blood Count 4.36 M/mm3 (4.2-5.4); Red Cell Distribution Width 12.1 % (11.5-14.5); White Blood Count 4.1 K/mm3 (4.5-10.0)
[2020-12-01 05:18] VITALS: BP 156/72; PULSE 76; RESP 18; TEMP 36.1; O2SAT 100
[2020-12-01 05:24] LABS: Anion Gap 3 mmol/L (8-16); Blood Urea Nitrogen 24 mg/dL (7-17); Calcium 8.9 mg/dL (8.4-10.2); Carbon Dioxide 30 mmol/L (22-30); Chloride 104 mmol/L (98-107); Estimated CRCL calculation 34 ml/min; Estimated Glomerular Filt Rate > 60; Glucose 82 mg/dL (65-105); Potassium 3.9 mmol/L (3.4-5.0); Sodium 137 mmol/L (137-145)
[2020-12-01] MEDS: hydroCHLOROthiazide 25 MG TABLET PO (08:53)
[2020-12-01] MEDS: oxyCODONE/ACETAMINOPHEN (*CRX) 5-325 MG TABLET 1 TABLET PO ×2 (08:53→12:28)
[2020-12-01] MEDS: CLOPIDOGREL BISULFATE 75 MG TABLET PO (08:53)
[2020-12-01] MEDS: HEPARIN SODIUM 5,000 UNITS/ML VIAL 5000 UNITS SUB-Q ×2 (08:53→20:39)
[2020-12-01] MEDS: POTASSIUM CHLORIDE 10 MEQ TABLET.ER PO (08:54)
[2020-12-01] MEDS: NIFEdipine 30 MG TAB.ER.24 90 MG PO (08:54)
[2020-12-01] MEDS: MULTIVITAMINS THERAPEUTIC TAB (*BKC) 1 TABLET PO (08:54)
[2020-12-01] MEDS: LOSARTAN POTASSIUM 25 MG TABLET PO (08:54)
[2020-12-01] MEDS: polyethylene glycoL 3350 17 GM POWD.PACK PO ×2 (12:49→20:45)
--- NOTE | 2020-12-01 13:02 | PCDIET ---
Nutrition Follow-Up Complete: Nutrition Diagnosis: Suboptimal oral intake related to timing of meals as evidenced by 25% meal consumption of breakfast and daughter request for ensure BID. Nutrition Goal: Patient to consume 75% or more of meals on current diet order. Goal in progress. Average consumption from last review is 64% of recorded meals. Patient reports spouse occasionally bringing in food for her. Discussed importance of following heart healthy diet skilled nursing and provided education. See [facility] Stroke Prevention note for additional details. Last recorded weight is 57 kg. Recommend obtaining new weight. Bowel Motility: Last documented BM on 11/25/20. Patient on Miralax. Recommend additional medication(s) if medically appropriate. Fruit/vegetable intake encouraged throughout visit. Labs Reviewed: BUN (24), Cr (1.1) Meds Noted: Lipitor, Plavix, Hydralazine, Hydrochlorothiazide, Cozaar, MVI/minerals, Nifedipine, Percocet, KCl, Miralax Additional Notes: No open sores documented. Will continue to monitor with same goal. Nutrition Monitoring and Evaluation: Follow up every 7 days.
[2020-12-01 14:00] VITALS: BP 127/76; PULSE 77; RESP 18; TEMP 36.5; O2SAT 100
--- NOTE | 2020-12-01 17:27 | WPDNEURORHBP ---
Subjective Date/time seen: 12/01/20 17:27 Interval history: 65-year-old female past medical history of hypertension and Raynaud's who presented to [facility] on 11/15/2020. Patient was found to have a left thalamus infarct on MRI. Patient did not receive tPA due to being outside the window. Patient was found to have no swallowing issues and was placed on a regular diet. On 11/20 patient attempted to go to the bathroom by herself resulting in a fall. Patient was found to have a fracture of the right 5th metatarsal shaft. Orthopedics was consulted and patient was placed in a walking boot with weight-bearing as tolerated. Patient had episode of lightheadedness. Will d/c norco and continue with Tylenol. Vitals were stable. Review of Systems Review of Systems: All systems reviewed & are unremarkable except as noted in HPI and below Functional Status Ambulation Ability Ability to Ambulate 10 Feet: Standby Assistance Ability to Ambulate 50 Feet With 2 Turns: Standby Assistance Ambulation Assistive Devices: Cane, Sai Exam Narrative: Exam Narrative: Right facial droop is noted. External ocular muscles are intact. Visual webber are full. Speech reveals a soft voice. Tongue is midline. Heart rate and rhythm is regular. Lungs are clear to auscultation. Abdomen is soft nontender. Left upper and left lower extremity strength are 4/5 right upper extremity strength at the shoulder is roughly 2 and distally 2+ right lower extremity strength is 3/5 right foot is in a soft splint. and CAM boot. Bruising is noted to the lateral aspect of the foot. Pain is noted on weightbearing. Patient demonstrates right hemiparesis. Cognition patient is alert times 4. . Patient independent with bed mobility. Bed transfers are contact guard. Patient with better control of RLE. Patient still tends to externally rotate due to muscle weakness Patient is anticoagulated on heparin Mood is better. Patient less anxious Objective Data Vital Signs Vital Signs: Vital Signs - 24 hr 11/30/20 20:53 12/01/20 05:18 12/01/20 14:00 Temperature 36.3 C L 36.1 C L 36.5 C Pulse Rate 78 76 77 Respiratory Rate 18 18 18 Blood Pressure 149/82 H 156/72 H 127/76 Pulse Oximetry 100 100 100 Intake/Output Intake/Output: Intake & Output 11/28/20 11/29/20 11/30/20 12/01/20 23:59 23:59 23:59 23:59 Intake Total 720 720 240 240 Balance 720 720 240 240 Meds/Results Medications: Active Medications Generic Name Dose Route Start Last Admin Trade Name Adele PRN Reason Stop Dose Admin Acetaminophen 1,000 mg 12/02/20 08:00 Acetaminophen 500 Mg Tablet PO 0800,1200 CHONG Acetaminophen 1,000 mg 12/01/20 15:39 Acetaminophen 500 Mg Tablet PO BID PRN Breakthrough Pain Atorvastatin Calcium 40 mg 11/24/20 21:00 11/30/20 21:00 Atorvastatin 40 Mg Tablet PO 40 mg HS CHONG Administration Clopidogrel Bisulfate 75 mg 11/24/20 09:00 12/01/20 08:53 Clopidogrel Bisulfate 75 Mg Tablet PO 75 mg DAILY CHONG Administration Cyclobenzaprine HCl 10 mg 11/24/20 00:35 11/27/20 14:41 Cyclobenzaprine Hcl 10 Mg Tablet PO 10 mg Q4-6H PRN Administration Muscle Spasm Cyclobenzaprine HCl 10 mg 11/27/20 21:00 11/30/20 21:38 Cyclobenzaprine Hcl 10 Mg Tablet PO 10 mg HS CHONG Administration Heparin Sodium (Porcine) 5,000 units 11/24/20 09:00 12/01/20 08:53 Heparin Sodium 5,000 Units/Ml Vial SUB-Q 5,000 units Q12HR CHONG Administration Hydralazine HCl 25 mg 11/24/20 00:35 Hydralazine Hcl 25 Mg Tablet PO Q6-8H PRN Hypertension Hydrochlorothiazide 25 mg 11/24/20 09:00 12/01/20 08:53 Hydrochlorothiazide 25 Mg Tablet PO 25 mg DAILY CHONG Administration Losartan Potassium 25 mg 11/24/20 09:00 12/01/20 08:54 Losartan Potassium 25 Mg Tablet PO 25 mg DAILY CHONG Administration Melatonin 3 mg 11/30/20 21:00 11/30/20 22:13 Melatonin 3 Mg Tablet PO 3 mg
[2020-12-01 20:00] VITALS: PULSE 77; RESP 16; O2SAT 100
[2020-12-01] MEDS: ATORVASTATIN 40 MG TABLET PO (20:36)
[2020-12-01] MEDS: CYCLOBENZAPRINE HCL 10 MG TABLET PO (20:37)
[2020-12-01] MEDS: MELATONIN 3 MG TABLET PO (20:37)
[2020-12-01 21:52] VITALS: BP 107/70; PULSE 77; RESP 16; TEMP 36.6; O2SAT 100
[2020-12-02] MEDS: ACETAMINOPHEN 500 MG TABLET 1000 MG PO ×3 (02:29→12:12)
[2020-12-02 05:15] VITALS: BP 132/72; PULSE 71; RESP 16; TEMP 36.5; O2SAT 100
[2020-12-02] MEDS: POTASSIUM CHLORIDE 10 MEQ TABLET.ER PO (08:53)
[2020-12-02] MEDS: NIFEdipine 30 MG TAB.ER.24 90 MG PO (08:53)
[2020-12-02] MEDS: HEPARIN SODIUM 5,000 UNITS/ML VIAL 5000 UNITS SUB-Q ×2 (08:53→20:33)
[2020-12-02] MEDS: CLOPIDOGREL BISULFATE 75 MG TABLET PO (08:53)
[2020-12-02] MEDS: MULTIVITAMINS THERAPEUTIC TAB (*BKC) 1 TABLET PO (08:53)
[2020-12-02] MEDS: LOSARTAN POTASSIUM 25 MG TABLET PO (08:53)
[2020-12-02] MEDS: hydroCHLOROthiazide 25 MG TABLET PO (08:53)
--- NOTE | 2020-12-02 09:27 | WPDNEURORHBP ---
Subjective Date/time seen: 12/02/20 09:27 Interval history: 65-year-old female past medical history of hypertension and Raynaud's who presented to [facility] on 11/15/2020. Patient was found to have a left thalamus infarct on MRI. Patient did not receive tPA due to being outside the window. Patient was found to have no swallowing issues and was placed on a regular diet. On 11/20 patient attempted to go to the bathroom by herself resulting in a fall. Patient was found to have a fracture of the right 5th metatarsal shaft. Orthopedics was consulted and patient was placed in a walking boot with weight-bearing as tolerated. Patient had episode of lightheadedness. Will d/c norco and continue with Tylenol. Vitals were stable at time of symptoms. Patient states that evening pain wakes her up. Will trial Neurontin Review of Systems Review of Systems: All systems reviewed & are unremarkable except as noted in HPI and below Functional Status Ambulation Ability Ability to Ambulate 10 Feet: Standby Assistance Ability to Ambulate 50 Feet With 2 Turns: Standby Assistance Ambulation Assistive Devices: Cane, Sai Exam Narrative: Exam Narrative: Right facial droop is noted. External ocular muscles are intact. Visual webber are full. Speech reveals a soft voice. Tongue is midline. Heart rate and rhythm is regular. Lungs are clear to auscultation. Abdomen is soft nontender. Left upper and left lower extremity strength are 4/5 right upper extremity strength at the shoulder is roughly 2 and distally 2+ right lower extremity strength is 3/5 right foot is in a soft splint. and CAM boot. Bruising is noted to the lateral aspect of the foot. Pain is noted on weightbearing. Patient demonstrates right hemiparesis. Cognition patient is alert times 4. . Patient independent with bed mobility. Bed transfers are contact guard. Patient with better control of RLE. Patient still tends to externally rotate due to muscle weakness Patient is anticoagulated on heparin Mood is better. Patient less anxious. Patient understands concerns of opiod discontinuation. Objective Data Vital Signs Vital Signs: Vital Signs - 24 hr 12/01/20 14:00 12/01/20 20:00 12/01/20 21:52 Temperature 36.5 C 36.6 C Pulse Rate 77 77 77 Respiratory Rate 18 16 16 Blood Pressure 127/76 107/70 Pulse Oximetry 100 100 100 12/02/20 05:15 Temperature 36.5 C Pulse Rate 71 Respiratory Rate 16 Blood Pressure 132/72 Pulse Oximetry 100 Intake/Output Intake/Output: Intake & Output 11/29/20 11/30/20 12/01/20 12/02/20 23:59 23:59 23:59 23:59 Intake Total 720 240 480 240 Balance 720 240 480 240 Meds/Results Medications: Active Medications Generic Name Dose Route Start Last Admin Trade Name Adele PRN Reason Stop Dose Admin Acetaminophen 1,000 mg 12/02/20 08:00 12/02/20 08:54 Acetaminophen 500 Mg Tablet PO 1,000 mg 0800,1200 CHONG Administration Acetaminophen 1,000 mg 12/01/20 15:39 12/02/20 02:29 Acetaminophen 500 Mg Tablet PO 1,000 mg BID PRN Administration Breakthrough Pain Atorvastatin Calcium 40 mg 11/24/20 21:00 12/01/20 20:36 Atorvastatin 40 Mg Tablet PO 40 mg HS CHONG Administration Clopidogrel Bisulfate 75 mg 11/24/20 09:00 12/02/20 08:53 Clopidogrel Bisulfate 75 Mg Tablet PO 75 mg DAILY CHONG Administration Cyclobenzaprine HCl 10 mg 11/24/20 00:35 11/27/20 14:41 Cyclobenzaprine Hcl 10 Mg Tablet PO 10 mg Q4-6H PRN Administration Muscle Spasm Cyclobenzaprine HCl 10 mg 11/27/20 21:00 12/01/20 20:37 Cyclobenzaprine Hcl 10 Mg Tablet PO 10 mg HS CHONG Administration Heparin Sodium (Porcine) 5,000 units 11/24/20 09:00 12/02/20 08:53 Heparin Sodium 5,000 Units/Ml Vial SUB-Q 5,000 units Q12HR CHONG Administration Hydralazine HCl 25 mg 11/24/20 00:35 Hydralazine Hcl 25 Mg Tablet PO Q6-8H PRN Hypertension Hydrochlorothiazide 25 mg
[2020-12-02] MEDS: polyethylene glycoL 3350 17 GM POWD.PACK PO ×2 (09:57→20:35)
[2020-12-02 14:00] VITALS: BP 126/60; PULSE 68; RESP 18; TEMP 36.7; O2SAT 95
[2020-12-02 20:10] VITALS: PULSE 79; RESP 16; O2SAT 100
[2020-12-02] MEDS: GABAPENTIN 100 MG CAPSULE PO (20:31)
[2020-12-02] MEDS: ATORVASTATIN 40 MG TABLET PO (20:31)
[2020-12-02] MEDS: CYCLOBENZAPRINE HCL 10 MG TABLET PO (20:32)
[2020-12-02] MEDS: GABAPENTIN 300 MG CAPSULE PO (20:33)
[2020-12-02] MEDS: MELATONIN 3 MG TABLET PO (20:33)
[2020-12-02 22:00] VITALS: BP 126/72; PULSE 79; RESP 16; TEMP 37.2; O2SAT 100
[2020-12-03 05:46] VITALS: BP 124/71; PULSE 74; RESP 16; TEMP 36.1; O2SAT 96
[2020-12-03] MEDS: NIFEdipine 30 MG TAB.ER.24 90 MG PO (08:47)
[2020-12-03] MEDS: MULTIVITAMINS THERAPEUTIC TAB (*BKC) 1 TABLET PO (08:47)
[2020-12-03] MEDS: hydroCHLOROthiazide 25 MG TABLET PO (08:47)
[2020-12-03] MEDS: ACETAMINOPHEN 500 MG TABLET 1000 MG PO ×2 (08:47→12:22)
[2020-12-03] MEDS: HEPARIN SODIUM 5,000 UNITS/ML VIAL 5000 UNITS SUB-Q ×2 (08:47→20:11)
[2020-12-03] MEDS: POTASSIUM CHLORIDE 10 MEQ TABLET.ER PO (08:47)
[2020-12-03] MEDS: LOSARTAN POTASSIUM 25 MG TABLET PO (08:47)
[2020-12-03] MEDS: CLOPIDOGREL BISULFATE 75 MG TABLET PO (08:47)
--- NOTE | 2020-12-03 09:00 | WPDNEURORHBP ---
Subjective Date/time seen: 12/03/20 09:00 Interval history: 65-year-old female past medical history of hypertension and Raynaud's who presented to [facility] on 11/15/2020. Patient was found to have a left thalamus infarct on MRI. Patient did not receive tPA due to being outside the window. Patient was found to have no swallowing issues and was placed on a regular diet. On 11/20 patient attempted to go to the bathroom by herself resulting in a fall. Patient was found to have a fracture of the right 5th metatarsal shaft. Orthopedics was consulted and patient was placed in a walking boot with weight-bearing as tolerated. Patient had episode of lightheadedness. Will d/c norco and continue with Tylenol. Vitals were stable at time of symptoms. Patient states that evening pain wakes her up. Will trial Neurontin . Neurontin was helpful last night. Patient slepts. Patient also was able to adjust leg and relieve pain on her own without meds. Patient remains anxious but is developing coping skills Review of Systems Review of Systems: All systems reviewed & are unremarkable except as noted in HPI and below Functional Status Ambulation Ability Ability to Ambulate 10 Feet: Standby Assistance Ability to Ambulate 50 Feet With 2 Turns: Standby Assistance Ambulation Assistive Devices: Cane, Sai Exam Narrative: Exam Narrative: Right facial droop is noted. External ocular muscles are intact. Visual webber are full. Voice is stronger. Tongue is midline. Heart rate and rhythm is regular. Lungs are clear to auscultation. Abdomen is soft nontender. Left upper and left lower extremity strength are 4/5 right upper extremity strength at the shoulder is roughly 3- and distally 3- right lower extremity strength is 3+/5 right foot is in a soft splint. and CAM boot. Bruising is noted to the lateral aspect of the foot. Pain is noted on weightbearing. Patient demonstrates right hemiparesis. Cognition patient is alert times 4. . Patient independent with bed mobility. Bed transfers are contact guar/SBA. Patient with better control of RLE. Patient still tends to externally rotate due to muscle weakness Patient is anticoagulated on heparin Mood is better. Patient less anxious. Patient understands concerns of opiod discontinuation. Objective Data Vital Signs Vital Signs: Vital Signs - 24 hr 12/02/20 14:00 12/02/20 20:10 12/02/20 22:00 Temperature 36.7 C 37.2 C Pulse Rate 68 79 79 Respiratory Rate 18 16 16 Blood Pressure 126/60 126/72 Pulse Oximetry 95 100 100 12/03/20 05:46 Temperature 36.1 C L Pulse Rate 74 Respiratory Rate 16 Blood Pressure 124/71 Pulse Oximetry 96 Intake/Output Intake/Output: Intake & Output 11/30/20 12/01/20 12/02/20 12/03/20 23:59 23:59 23:59 23:59 Intake Total 240 480 720 240 Balance 240 480 720 240 Meds/Results Medications: Active Medications Generic Name Dose Route Start Last Admin Trade Name Freq PRN Reason Stop Dose Admin Acetaminophen 1,000 mg 12/02/20 08:00 12/03/20 08:47 Acetaminophen 500 Mg Tablet PO 1,000 mg 0800,1200 CHONG Administration Acetaminophen 1,000 mg 12/01/20 15:39 12/02/20 02:29 Acetaminophen 500 Mg Tablet PO 1,000 mg BID PRN Administration Breakthrough Pain Atorvastatin Calcium 40 mg 11/24/20 21:00 12/02/20 20:31 Atorvastatin 40 Mg Tablet PO 40 mg HS CHONG Administration Clopidogrel Bisulfate 75 mg 11/24/20 09:00 12/03/20 08:47 Clopidogrel Bisulfate 75 Mg Tablet PO 75 mg DAILY CHONG Administration Cyclobenzaprine HCl 10 mg 11/24/20 00:35 11/27/20 14:41 Cyclobenzaprine Hcl 10 Mg Tablet PO 10 mg Q4-6H PRN Administration Muscle Spasm Cyclobenzaprine HCl 10 mg 11/27/20 21:00 12/02/20 20:32 Cyclobenzaprine Hcl 10 Mg Tablet PO 10 mg HS CHONG Administration Gabapentin 300 mg 12/02/20 21:00 12/02/20 20:33 Gabapentin 300 Mg Capsule PO 300 mg HS CHONG Administration Hepa
[2020-12-03 14:00] VITALS: BP 117/77; PULSE 74; RESP 18; TEMP 36.4; O2SAT 100
[2020-12-03] MEDS: GABAPENTIN 300 MG CAPSULE PO (20:08)
[2020-12-03] MEDS: ATORVASTATIN 40 MG TABLET PO (20:08)
[2020-12-03] MEDS: CYCLOBENZAPRINE HCL 10 MG TABLET PO (20:08)
[2020-12-03] MEDS: polyethylene glycoL 3350 17 GM POWD.PACK PO (20:17)
[2020-12-03] MEDS: MELATONIN 3 MG TABLET PO (20:39)
[2020-12-03 22:00] VITALS: BP 145/85; PULSE 76; RESP 18; TEMP 36.4; O2SAT 99
[2020-12-04 06:00] VITALS: BP 125/73; PULSE 70; RESP 16; TEMP 35.8; O2SAT 100
[2020-12-04] MEDS: ACETAMINOPHEN 500 MG TABLET 1000 MG PO ×3 (07:52→17:25)
[2020-12-04] MEDS: NIFEdipine 30 MG TAB.ER.24 90 MG PO (07:53)
[2020-12-04] MEDS: hydroCHLOROthiazide 25 MG TABLET PO (07:53)
[2020-12-04] MEDS: CLOPIDOGREL BISULFATE 75 MG TABLET PO (07:53)
[2020-12-04] MEDS: HEPARIN SODIUM 5,000 UNITS/ML VIAL 5000 UNITS SUB-Q ×2 (07:53→20:55)
[2020-12-04] MEDS: LOSARTAN POTASSIUM 25 MG TABLET PO (07:54)
[2020-12-04] MEDS: MULTIVITAMINS THERAPEUTIC TAB (*BKC) 1 TABLET PO (07:54)
[2020-12-04] MEDS: POTASSIUM CHLORIDE 10 MEQ TABLET.ER PO (07:54)
[2020-12-04 14:00] VITALS: BP 148/88; PULSE 82; RESP 18; TEMP 36.9; O2SAT 100
--- NOTE | 2020-12-04 16:22 | WPDNEURORHBP ---
Subjective Date/time seen: 12/04/20 16:22 Interval history: 65-year-old female past medical history of hypertension and Raynaud's who presented to [facility] on 11/15/2020. Patient was found to have a left thalamus infarct on MRI. Patient did not receive tPA due to being outside the window. Patient was found to have no swallowing issues and was placed on a regular diet. On 11/20 patient attempted to go to the bathroom by herself resulting in a fall. Patient was found to have a fracture of the right 5th metatarsal shaft. Orthopedics was consulted and patient was placed in a walking boot with weight-bearing as tolerated. Patient is pleased with her sleeping and pain mgmt. Mood is bright. Review of Systems Review of Systems: All systems reviewed & are unremarkable except as noted in HPI and below Functional Status Ambulation Ability Ability to Ambulate 10 Feet: Independent Ability to Ambulate 50 Feet With 2 Turns: Minimum Assistance X 1 Ability to Ambulate 150 Feet: Standby Assistance Ambulation Assistive Devices: Cane, Sai Exam Narrative: Exam Narrative: Right facial droop is noted. External ocular muscles are intact. Visual webber are full. Voice is stronger. Tongue is midline. Heart rate and rhythm is regular. Lungs are clear to auscultation. Abdomen is soft nontender. Left upper and left lower extremity strength are 4/5. Right upper extremity strength at the shoulder is roughly 3+ and distally 3+ right lower extremity strength is 3+/5 right foot is in a soft splint. and CAM boot. Patient demonstrates right hemiparesis. Cognition patient is alert times 4. . Patient independent with bed mobility. Bed transfers are contact guard/SBA. Patient with better control of RLE. Patient still tends to externally rotate due to muscle weakness Patient is anticoagulated on heparin Mood is better. Patient less anxious. Patient understands concerns of opiod discontinuation. Objective Data Vital Signs Vital Signs: Vital Signs - 24 hr 12/03/20 22:00 12/04/20 06:00 12/04/20 14:00 Temperature 36.4 C 35.8 C L 36.9 C Pulse Rate 76 70 82 Respiratory Rate 18 16 18 Blood Pressure 145/85 H 125/73 148/88 H Pulse Oximetry 99 100 100 Intake/Output Intake/Output: Intake & Output 12/01/20 12/02/20 12/03/2012/04/21 23:59 23:59 23:59 23:59 Intake Total 480 720 720 480 Balance 480 720 720 480 Meds/Results Medications: Active Medications Generic Name Dose Route Start Last Admin Trade Name Adele PRN Reason Stop Dose Admin Acetaminophen 1,000 mg 12/02/20 08:00 12/04/20 12:13 Acetaminophen 500 Mg Tablet PO 1,000 mg 0800,1200 CHONG Administration Acetaminophen 1,000 mg 12/01/20 15:39 12/02/20 02:29 Acetaminophen 500 Mg Tablet PO 1,000 mg BID PRN Administration Breakthrough Pain Atorvastatin Calcium 40 mg 11/24/20 21:00 12/03/20 20:08 Atorvastatin 40 Mg Tablet PO 40 mg HS CHONG Administration Clopidogrel Bisulfate 75 mg 11/24/20 09:00 12/04/20 07:53 Clopidogrel Bisulfate 75 Mg Tablet PO 75 mg DAILY CHONG Administration Cyclobenzaprine HCl 10 mg 11/24/20 00:35 11/27/20 14:41 Cyclobenzaprine Hcl 10 Mg Tablet PO 10 mg Q4-6H PRN Administration Muscle Spasm Cyclobenzaprine HCl 10 mg 11/27/20 21:00 12/03/20 20:08 Cyclobenzaprine Hcl 10 Mg Tablet PO 10 mg HS CHONG Administration Gabapentin 300 mg 12/02/20 21:00 12/03/20 20:08 Gabapentin 300 Mg Capsule PO 300 mg HS CHONG Administration Heparin Sodium (Porcine) 5,000 units 11/24/20 09:00 12/04/20 07:53 Heparin Sodium 5,000 Units/Ml Vial SUB-Q 5,000 units Q12HR CHONG Administration Hydralazine HCl 25 mg 11/24/20 00:35 Hydralazine Hcl 25 Mg Tablet PO Q6-8H PRN Hypertension Hydrochlorothiazide 25 mg 11/24/20 09:00 12/04/20 07:53 Hydrochlorothiazide 25 Mg Tablet PO 25 mg DAILY CHONG Administration Losartan Potassium 25 mg 11/24/20 09:00 04
[2020-12-04] MEDS: GABAPENTIN 300 MG CAPSULE PO (20:54)
[2020-12-04] MEDS: ATORVASTATIN 40 MG TABLET PO (20:54)
[2020-12-04] MEDS: CYCLOBENZAPRINE HCL 10 MG TABLET PO (20:55)
[2020-12-04] MEDS: MELATONIN 3 MG TABLET PO (20:55)
[2020-12-04 21:58] VITALS: BP 124/86; PULSE 83; RESP 16; TEMP 36.7; O2SAT 100
[2020-12-05 06:00] VITALS: BP 125/78; PULSE 61; RESP 16; TEMP 36; O2SAT 99
[2020-12-05] MEDS: ACETAMINOPHEN 500 MG TABLET 1000 MG PO ×2 (10:13→13:09)
[2020-12-05] MEDS: CLOPIDOGREL BISULFATE 75 MG TABLET PO (10:14)
[2020-12-05] MEDS: MULTIVITAMINS THERAPEUTIC TAB (*BKC) 1 TABLET PO (10:14)
[2020-12-05] MEDS: hydroCHLOROthiazide 25 MG TABLET PO (10:14)
[2020-12-05] MEDS: LOSARTAN POTASSIUM 25 MG TABLET PO (10:14)
[2020-12-05] MEDS: POTASSIUM CHLORIDE 10 MEQ TABLET.ER PO (10:15)
[2020-12-05] MEDS: NIFEdipine 30 MG TAB.ER.24 90 MG PO (10:16)
[2020-12-05 14:00] VITALS: BP 128/74; PULSE 67; RESP 16; TEMP 36.6; O2SAT 98
--- NOTE | 2020-12-05 15:14 | WPDNEURORHBP ---
Subjective Date/time seen: 12/05/20 15:14 Interval history: 65-year-old female past medical history of hypertension and Raynaud's who presented to [facility] on 11/15/2020. Patient was found to have a left thalamus infarct on MRI. Patient did not receive tPA due to being outside the window. Patient was found to have no swallowing issues and was placed on a regular diet. On 11/20 patient attempted to go to the bathroom by herself resulting in a fall. Patient was found to have a fracture of the right 5th metatarsal shaft. Orthopedics was consulted and patient was placed in a walking boot with weight-bearing as tolerated. Patient is pleased with her sleeping and pain mgmt. Mood is bright. We will take away the gabapentin to see if patients needs this med. Review of Systems Review of Systems: All systems reviewed & are unremarkable except as noted in HPI and below Functional Status Ambulation Ability Ability to Ambulate 10 Feet: Independent Ability to Ambulate 50 Feet With 2 Turns: Independent Ability to Ambulate 150 Feet: Standby Assistance Ambulation Assistive Devices: Cane, Sai Exam Narrative: Exam Narrative: Right facial droop is noted. External ocular muscles are intact. Visual webber are full. Voice is stronger. Tongue is midline. Heart rate and rhythm is regular. Lungs are clear to auscultation. Abdomen is soft nontender. Left upper and left lower extremity strength are 4/5. Right upper extremity strength at the shoulder is roughly 3+ and distally 3+ right lower extremity strength is 3+/5 right foot is in a soft splint. and CAM boot. Patient demonstrates right hemiparesis. Cognition patient is alert times 4. . Patient independent with bed mobility. Bed transfers are independent Gait is SBA with CAM boot and hemiwalker Patient with better control of RLE. Patient still tends to externally rotate due to muscle weakness Patient is anticoagulated on heparin. Will discontinue Mood is better. Patient less anxious. Objective Data Vital Signs Vital Signs: Vital Signs - 24 hr 12/04/20 21:58 12/05/20 06:00 12/05/20 14:00 Temperature 36.7 C 36.0 C L 36.6 C Pulse Rate 83 61 67 Respiratory Rate 16 16 16 Blood Pressure 124/86 125/78 128/74 Pulse Oximetry 100 99 98 Intake/Output Intake/Output: Intake & Output 12/02/20 12/03/20 12/04/20 12/05/20 23:59 23:59 23:59 23:59 Intake Total 720 720 720 720 Balance 720 720 720 720 Meds/Results Medications: Active Medications Generic Name Dose Route Start Last Admin Trade Name Adele PRN Reason Stop Dose Admin Acetaminophen 1,000 mg 12/02/20 08:00 12/05/20 13:09 Acetaminophen 500 Mg Tablet PO 1,000 mg 0800,1200 CHONG Administration Acetaminophen 1,000 mg 12/01/20 15:39 12/04/20 17:25 Acetaminophen 500 Mg Tablet PO 1,000 mg BID PRN Administration Breakthrough Pain Atorvastatin Calcium 40 mg 11/24/20 21:00 12/04/20 20:54 Atorvastatin 40 Mg Tablet PO 40 mg HS CHONG Administration Clopidogrel Bisulfate 75 mg 11/24/20 09:00 12/05/20 10:14 Clopidogrel Bisulfate 75 Mg Tablet PO 75 mg DAILY CHONG Administration Cyclobenzaprine HCl 10 mg 11/24/20 00:35 11/27/20 14:41 Cyclobenzaprine Hcl 10 Mg Tablet PO 10 mg Q4-6H PRN Administration Muscle Spasm Cyclobenzaprine HCl 10 mg 11/27/20 21:00 12/04/20 20:55 Cyclobenzaprine Hcl 10 Mg Tablet PO 10 mg HS CHONG Administration Gabapentin 300 mg 12/02/20 21:00 12/04/20 20:54 Gabapentin 300 Mg Capsule PO 300 mg HS CHONG Administration Hydralazine HCl 25 mg 11/24/20 00:35 Hydralazine Hcl 25 Mg Tablet PO Q6-8H PRN Hypertension Hydrochlorothiazide 25 mg 11/24/20 09:00 12/05/20 10:14 Hydrochlorothiazide 25 Mg Tablet PO 25 mg DAILY CHONG Administration Losartan Potassium 25 mg 11/24/20 09:00 12/05/20 10:14 Losartan Potassium 25 Mg Tablet PO 25 mg DAILY CHONG Administration Melatonin 3 mg
[2020-12-05] MEDS: ATORVASTATIN 40 MG TABLET PO (21:05)
[2020-12-05] MEDS: MELATONIN 3 MG TABLET PO (21:05)
[2020-12-05] MEDS: CYCLOBENZAPRINE HCL 10 MG TABLET PO (21:05)
[2020-12-05 21:28] VITALS: BP 108/70; PULSE 80; RESP 18; TEMP 36.3; O2SAT 100
[2020-12-06 05:31] VITALS: BP 112/66; PULSE 76; RESP 18; TEMP 36.4; O2SAT 100
[2020-12-06] MEDS: LOSARTAN POTASSIUM 25 MG TABLET PO (08:49)
[2020-12-06] MEDS: MULTIVITAMINS THERAPEUTIC TAB (*BKC) 1 TABLET PO (08:49)
[2020-12-06] MEDS: CLOPIDOGREL BISULFATE 75 MG TABLET PO (08:49)
[2020-12-06] MEDS: NIFEdipine 30 MG TAB.ER.24 90 MG PO (08:49)
[2020-12-06] MEDS: hydroCHLOROthiazide 25 MG TABLET PO (08:49)
[2020-12-06] MEDS: POTASSIUM CHLORIDE 10 MEQ TABLET.ER PO (08:49)
[2020-12-06] MEDS: ACETAMINOPHEN 500 MG TABLET 1000 MG PO ×2 (08:49→12:05)
--- NOTE | 2020-12-06 09:26 | WPDNEURORHBP ---
Subjective Date/time seen: 12/06/20 09:26 Interval history: 65-year-old female past medical history of hypertension and Raynaud's who presented to [facility] on 11/15/2020. Patient was found to have a left thalamus infarct on MRI. Patient did not receive tPA due to being outside the window. Patient was found to have no swallowing issues and was placed on a regular diet. On 11/20 patient attempted to go to the bathroom by herself resulting in a fall. Patient was found to have a fracture of the right 5th metatarsal shaft. Orthopedics was consulted and patient was placed in a walking boot with weight-bearing as tolerated. Patient was not able to sleep last night. Neurontin was held . Will resume Neurontin at 200 mg and d/c flexeril . Patient complaining of right shoulder pain but admits that she is overusing RUE Review of Systems Review of Systems: All systems reviewed & are unremarkable except as noted in HPI and below Functional Status Ambulation Ability Ability to Ambulate 10 Feet: Independent Ability to Ambulate 50 Feet With 2 Turns: Independent Ability to Ambulate 150 Feet: Standby Assistance Ambulation Assistive Devices: Cane, Sai Exam Narrative: Exam Narrative: Right facial droop is noted. External ocular muscles are intact. Visual webber are full. Voice is strong. Tongue is midline. Heart rate and rhythm is regular. Lungs are clear to auscultation. Abdomen is soft nontender. Left upper and left lower extremity strength are 4/5. Right upper extremity strength at the shoulder is roughly 3+ and distally 3+ right lower extremity strength is 3+/5 right foot is in a soft splint and CAM boot. Patient demonstrates right hemiparesis. Cognition patient is alert times 4. . Patient independent with bed mobility. Bed transfers are independent Gait is SBA with CAM boot and hemiwalker Patient with better control of RLE. Patient still tends to externally rotate due to muscle weakness Patient is anticoagulated on heparin. Will discontinue Mood is better. Patient less anxious. Objective Data Vital Signs Vital Signs: Vital Signs - 24 hr 12/05/20 14:00 12/05/20 21:28 12/06/20 05:31 Temperature 36.6 C 36.3 C L 36.4 C Pulse Rate 67 80 76 Respiratory Rate 16 18 18 Blood Pressure 128/74 108/70 112/66 Pulse Oximetry 98 100 100 Intake/Output Intake/Output: Intake & Output 12/03/20 12/04/20 12/05/20 12/06/20 23:59 23:59 23:59 23:59 Intake Total 720 720 960 240 Balance 720 720 960 240 Meds/Results Medications: Active Medications Generic Name Dose Route Start Last Admin Trade Name Adele PRN Reason Stop Dose Admin Acetaminophen 1,000 mg 12/02/20 08:00 12/06/20 08:49 Acetaminophen 500 Mg Tablet PO 1,000 mg 0800,1200 CHONG Administration Acetaminophen 1,000 mg 12/01/20 15:39 12/04/20 17:25 Acetaminophen 500 Mg Tablet PO 1,000 mg BID PRN Administration Breakthrough Pain Atorvastatin Calcium 40 mg 11/24/20 21:00 12/05/20 21:05 Atorvastatin 40 Mg Tablet PO 40 mg HS CHONG Administration Clopidogrel Bisulfate 75 mg 11/24/20 09:00 12/06/20 08:49 Clopidogrel Bisulfate 75 Mg Tablet PO 75 mg DAILY CHONG Administration Cyclobenzaprine HCl 10 mg 11/24/20 00:35 11/27/20 14:41 Cyclobenzaprine Hcl 10 Mg Tablet PO 10 mg Q4-6H PRN Administration Muscle Spasm Cyclobenzaprine HCl 10 mg 12/06/20 08:56 Cyclobenzaprine Hcl 10 Mg Tablet PO HS PRN Muscle Spasm Gabapentin 200 mg 12/06/20 21:00 Gabapentin 100 Mg Capsule PO BEDTIME CHONG Hydralazine HCl 25 mg 11/24/20 00:35 Hydralazine Hcl 25 Mg Tablet PO Q6-8H PRN Hypertension Hydrochlorothiazide 25 mg 11/24/20 09:00 12/06/20 08:49 Hydrochlorothiazide 25 Mg Tablet PO 25 mg DAILY CHONG Administration Losartan Potassium 25 mg 11/24/20 09:00 12/06/20 08:49 Losartan Potassium 25 Mg Tablet PO 25 mg DAILY CHONG Administration Melatonin 3
[2020-12-06 14:00] VITALS: BP 124/62; PULSE 81; RESP 20; TEMP 36.2; O2SAT 97
[2020-12-06 20:00] VITALS: PULSE 72; RESP 16; O2SAT 99
[2020-12-06] MEDS: GABAPENTIN 100 MG CAPSULE 200 MG PO (20:46)
[2020-12-06] MEDS: ATORVASTATIN 40 MG TABLET PO (20:46)
[2020-12-06] MEDS: MELATONIN 3 MG TABLET PO (20:46)
[2020-12-06 21:26] VITALS: BP 136/83; PULSE 72; RESP 16; TEMP 36.6; O2SAT 99
[2020-12-07 05:06] VITALS: BP 128/84; PULSE 76; RESP 16; TEMP 36.2; O2SAT 100
[2020-12-07 08:00] VITALS: PULSE 76; RESP 16; O2SAT 100
[2020-12-07] MEDS: LOSARTAN POTASSIUM 25 MG TABLET PO (08:31)
[2020-12-07] MEDS: hydroCHLOROthiazide 25 MG TABLET PO (08:31)
[2020-12-07] MEDS: POTASSIUM CHLORIDE 10 MEQ TABLET.ER PO (08:32)
[2020-12-07] MEDS: ACETAMINOPHEN 500 MG TABLET 1000 MG PO ×2 (08:32→12:30)
[2020-12-07] MEDS: MULTIVITAMINS THERAPEUTIC TAB (*BKC) 1 TABLET PO (08:32)
[2020-12-07] MEDS: CLOPIDOGREL BISULFATE 75 MG TABLET PO (08:32)
[2020-12-07] MEDS: NIFEdipine 30 MG TAB.ER.24 90 MG PO (08:32)
--- NOTE | 2020-12-07 08:50 | WPDNEURORHBP ---
Subjective Date/time seen: 12/07/20 08:50 Interval history: 65-year-old female past medical history of hypertension and Raynaud's who presented to [facility] on 11/15/2020. Patient was found to have a left thalamus infarct on MRI. Patient did not receive tPA due to being outside the window. Patient was found to have no swallowing issues and was placed on a regular diet. On 11/20 patient attempted to go to the bathroom by herself resulting in a fall. Patient was found to have a fracture of the right 5th metatarsal shaft. Orthopedics was consulted and patient was placed in a walking boot with weight-bearing as tolerated. Patient complains about being cold at night. Maintenance is aware. Unfortunately there is little that can be done since the air conditioner as been turned on and the heat turned off throughout the hospital. Patient is looking forward to going home and feels prepared. Review of Systems Review of Systems: All systems reviewed & are unremarkable except as noted in HPI and below Functional Status Ambulation Ability Ability to Ambulate 10 Feet: Independent Ability to Ambulate 50 Feet With 2 Turns: Independent Ability to Ambulate 150 Feet: Independent Ambulation Assistive Devices: Cane, Sai Objective Data Vital Signs Vital Signs: Vital Signs - 24 hr 12/06/20 14:00 12/06/20 20:00 12/06/20 21:26 Temperature 36.2 C L 36.6 C Pulse Rate 81 72 72 Respiratory Rate 20 16 16 Blood Pressure 124/62 136/83 Pulse Oximetry 97 99 99 12/07/20 05:06 Temperature 36.2 C L Pulse Rate 76 Respiratory Rate 16 Blood Pressure 128/84 Pulse Oximetry 100 Intake/Output Intake/Output: Intake & Output 12/04/20 12/05/20 12/06/20 12/07/20 23:59 23:59 23:59 23:59 Intake Total 720 960 600 Balance 720 960 600 Meds/Results Medications: Active Medications Generic Name Dose Route Start Last Admin Trade Name Freq PRN Reason Stop Dose Admin Acetaminophen 1,000 mg 12/02/20 08:00 12/07/20 08:32 Acetaminophen 500 Mg Tablet PO 1,000 mg 0800,1200 CHONG Administration Acetaminophen 1,000 mg 12/01/20 15:39 12/04/20 17:25 Acetaminophen 500 Mg Tablet PO 1,000 mg BID PRN Administration Breakthrough Pain Atorvastatin Calcium 40 mg 11/24/20 21:00 12/06/20 20:46 Atorvastatin 40 Mg Tablet PO 40 mg HS CHONG Administration Clopidogrel Bisulfate 75 mg 11/24/20 09:00 12/07/20 08:32 Clopidogrel Bisulfate 75 Mg Tablet PO 75 mg DAILY CHONG Administration Cyclobenzaprine HCl 10 mg 11/24/20 00:35 11/27/20 14:41 Cyclobenzaprine Hcl 10 Mg Tablet PO 10 mg Q4-6H PRN Administration Muscle Spasm Gabapentin 200 mg 12/06/20 21:00 12/06/20 20:46 Gabapentin 100 Mg Capsule PO 200 mg BEDTIME CHONG Administration Hydralazine HCl 25 mg 11/24/20 00:35 Hydralazine Hcl 25 Mg Tablet PO Q6-8H PRN Hypertension Hydrochlorothiazide 25 mg 11/24/20 09:00 12/07/20 08:31 Hydrochlorothiazide 25 Mg Tablet PO 25 mg DAILY CHONG Administration Losartan Potassium 25 mg 11/24/20 09:00 12/07/20 08:31 Losartan Potassium 25 Mg Tablet PO 25 mg DAILY CHONG Administration Melatonin 3 mg 11/30/20 21:00 12/06/20 20:46 Melatonin 3 Mg Tablet PO 3 mg HS CHONG Administration Multivitamins Therapeutic 1 tablet 11/24/20 09:00 12/07/20 08:32 Multivitamins Therapeutic Tab (*Bkc) PO 1 tablet DAILY CHONG Administration Nicotine Polacrilex 2 mg 11/24/20 00:35 Nicotine (*Pbkc) 2 Mg Gum BUCCAL Q1H PRN Smoking Cessation Nifedipine 90 mg 11/24/20 09:00 12/07/20 08:32 Nifedipine 30 Mg Tab.Er.24 PO 12/24/20 09:01 90 mg DAILY HCONG Administration Polyethylene Glycol 17 gm 11/24/20 00:35 12/03/20 20:17 Polyethylene Glycol 3350 17 Gm Powd.Pack PO 17 gm BID PRN Administration Constipation Potassium Chloride 10 meq 11/24/20 09:00 12/07/20 08:32 Potassium Chloride 10 Meq Tablet.Er PO 10 meq DAILY
[2020-12-07 14:00] VITALS: BP 134/70; PULSE 92; RESP 18; TEMP 36.6; O2SAT 100
[2020-12-07] MEDS: ATORVASTATIN 40 MG TABLET PO (19:59)
[2020-12-07 20:00] VITALS: PULSE 71; RESP 16; O2SAT 100
[2020-12-07] MEDS: MELATONIN 3 MG TABLET PO (20:00)
[2020-12-07] MEDS: GABAPENTIN 100 MG CAPSULE 200 MG PO (20:00)
[2020-12-07 21:57] VITALS: BP 121/67; PULSE 71; RESP 16; TEMP 36.2; O2SAT 100
[2020-12-08 05:02] VITALS: BP 150/94; PULSE 81; RESP 16; TEMP 35.8; O2SAT 99
[2020-12-08 05:07] LABS: Basophils Percent Auto 0.8 % (0.2-1.2); Eosinophils Absolute Auto 0.2 K/mm3 (0-0.3); Eosinophils Percent Auto 3.1 % (0-4.4); Hemoglobin 14.3 g/dL (12.0-15.0); Immature Granulocyte Absolute 0.01 K/mm3 (0.00-0.031); Immature Granulocyte Percent A 0.2 % (0-0.5); Lymphocytes Absolute Auto 1.83 K/mm3 (0.9-3.2); Lymphocytes Percent Auto 37.6 % (18.3-44.2); Mean Corpuscular HGB Conc 32.5 g/dl (32-36); Mean Corpuscular Hemoglobin 30.8 pg (26-34); Mean Corpuscular Volume 94.6 fl (80-100); Mean Platelet Volume 9.5 fl (7.4-10.4); Monocytes Absolute Auto 0.3 K/mm3 (0.1-0.6); Monocytes Percent Auto 5.7 % (2.6-8.5); Neutrophils Absolute Auto 2.6 K/mm3 (1.3-6.7); Neutrophils Percent Auto 52.6 % (45.5-73.1); Platelet Count Result 165 k/mm3 (150-375); Red Blood Count 4.65 M/mm3 (4.2-5.4); Red Cell Distribution Width 12.5 % (11.5-14.5); White Blood Count 4.9 K/mm3 (4.5-10.0)
[2020-12-08 05:32] LABS: Anion Gap 4 mmol/L (8-16); Blood Urea Nitrogen 26 mg/dL (7-17); Calcium 9.4 mg/dL (8.4-10.2); Carbon Dioxide 32 mmol/L (22-30); Chloride 105 mmol/L (98-107); Estimated CRCL calculation 41 ml/min; Estimated Glomerular Filt Rate > 60; Glucose 88 mg/dL (65-105); Potassium 3.5 mmol/L (3.4-5.0); Sodium 141 mmol/L (137-145)
--- NOTE | 2020-12-08 07:37 | PC.NURSE ---
Patient declined flu vaccination on discharge.
[2020-12-08] MEDS: MULTIVITAMINS THERAPEUTIC TAB (*BKC) 1 TABLET PO (07:44)
[2020-12-08] MEDS: NIFEdipine 30 MG TAB.ER.24 90 MG PO (07:44)
[2020-12-08] MEDS: CLOPIDOGREL BISULFATE 75 MG TABLET PO (07:44)
[2020-12-08] MEDS: LOSARTAN POTASSIUM 25 MG TABLET PO (07:44)
[2020-12-08] MEDS: ACETAMINOPHEN 500 MG TABLET 1000 MG PO (07:44)
[2020-12-08] MEDS: POTASSIUM CHLORIDE 10 MEQ TABLET.ER PO (07:44)
[2020-12-08] MEDS: hydroCHLOROthiazide 25 MG TABLET PO (07:44)
[2020-12-08 08:00] VITALS: PULSE 81; RESP 16; O2SAT 99
--- NOTE | 2020-12-08 08:54 | PM.DS ---
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 Patient can take Tylenol (2) CVA (cerebral vascular accident): Code(s): I63.9 - Cerebral infarction, unspecified Status: Acute Assessment and Plan: Plavix 75 mg daily. Lipitor 40 mg daily follow up with neurologist Lionel Pacheco (3) Right hemiplegia: Code(s): G81.91 - Hemiplegia, unspecified affecting right dominant side Status: Acute Assessment and Plan: PT OT (4) Cognitive attention deficit: Code(s): R41.840 - Attention and concentration deficit Status: Acute Assessment and Plan: speech. Improvements noted (5) Tobacco abuse: Code(s): Z72.0 - Tobacco use Status: Acute Assessment and Plan: Patient wishes no intervention. Patient states she will stop on her own (6) HTN (hypertension): Code(s): I10 - Essential (primary) hypertension Status: Acute Assessment and Plan: patient is on hydrochlorothiazide 25 mg daily losartan potassium 25 mg daily Procardia XL 90 mg daily. Potassium chloride 10 mEq daily BP under good control (7) Raynauds disease: Code(s): I73.00 - Raynaud's syndrome without gangrene Status: Acute Assessment and Plan: Patient to keep room warm (8) Dysarthria: Code(s): R47.1 - Dysarthria and anarthria Status: Acute DS: Summary Hospital Course Hospital Course: see dictation Time Spent with Patient Time attestation: CVA Posterior limb left Internal capsule ischemic stroke Patient is a 65-year-old female with past medical history of hypertension, and Raynaud's phenomena. She presented to [facility] on 11/15/2020 with sudden onset of right-sided weakness. Head CT showed no acute process with chronic small vessel changes. Chest x-ray showed no acute process. The patient was found to have hypertensive urgency with systolics into the 230s that was treated with IV hydralazine, hydrochlorothiazide, and nifedipine. The patient reports that she had not been taking her blood pressure medicine. Neurology was consulted, Dr. Lionel Pacheco, who discovered small areas of infarct in the left thalamus and left caudate head of undetermined age. During the neurologist exam it is suspected that the thalamic lacunar infarct was acute due to microvascular etiology due to hypertension and smoking. Neurology noted impairment of proprioception and sensory ataxia of the right arm, decreased right hand check weigher strength, inability to lift right leg against gravity, hyperreflexic in the lower right leg. Weakness of knee flexion and ankle dorsiflexion , as well as a mute Babinski. An IHSS was 1 for right lower leg drift. The patient did not receive tPA due to being outside the window. On 11/16/2020 MRI confirmed a small left thalamic capsular stroke. Carotid Doppler showed no significant stenosis. Cardiac echo showed no stent, ejection fraction of 60% and grade 1 diastolic dysfunction. MRA showed no acute findings. The patient passed a bedside swallow evaluation and is on regular consistency diet with thin liquids. On 11/19/2020 the patient reported that she attempted to go to the bathroom on her own she did not use her call light for assistance. She had a traumatic fall and complained of right foot pain. X-ray showed a displaced oblique fracture of the right 5th metatarsal shaft. Orthopedics was consulted, Dr. Isabella Yoo, who treated it conservatively with compression dressing, ice, and elevation. Patient is weight-bearing as tolerated with a walking boot. Boot is to b
== END 2020-12-08 10:25 | disposition home health service (06) | DRG 57 ==
PROVIDERS: Admitting Provider Physical Medicine & Rehabilitation; Visit Provider Physical Medicine & Rehabilitation
DX: I69.351 Hemiplegia and hemiparesis following cerebral infarction affecting right dominant side (principal); I69.392 Facial weakness following cerebral infarction; I69.310 Attention and concentration deficit following cerebral infarction; S92.351D Displaced fracture of fifth metatarsal bone, right foot, subsequent encounter for fracture with routine healing; W19.XXXD Unspecified fall, subsequent encounter; F17.210 Nicotine dependence, cigarettes, uncomplicated; I10 Essential (primary) hypertension; I73.00 Raynaud's syndrome without gangrene
CPT/HCPCS: 36415; 80048; 80061; 84132; 85025; 85055; 92507; 92523; 97110; 97116; 97129; 97130; 97161; 97165; 97530; 97535; 97542; A9270; J1644